=== PATIENT | female | born 1950 | race Native Hawaiian/Other Pacific Islander ===

== ENCOUNTER 2016-12-04 19:16 | Inpatient (IN) | payer OTHER ==
[~2016-12-04] VITALS: Ht 172.7 cm; Wt 57.6 kg
[~2016-12-04 19:16] MED LIST: BACLOFEN10 MG PO; BENADRYL25 M1 PO; CARV3.12 PO; CENTRUM SILVER ULTRA PO; CIPR500T PO; FLUDROCORT0.1 MG PO; LORA0.5T17 PO; METHYLPREDNISOLO1 GM IV; METO25TA4 OR; METO25TA4 PO; OMEPRAZOLE40 MG OR; PANT40TA PO; POLY3350 PO; QUETIAPINE50 MG PO; VIT C/ACEROL500 MG PO; VITAMIN D1000 UNI1 PO; ZOCOR80 MG PO
[2016-12-04 23:12] VITALS: BP 117/30; TEMP 97; Ht 172.7 cm; Wt 57.6 kg
[2016-12-05 05:19] LABS: PLATELET COUNT 339 K/uL (152-353)
[2016-12-05 05:50] LABS: POTASSIUM 4.2 mmol/L (3.6-5.2); SODIUM 138 mmol/L (136-145)
[2016-12-05 08:00] VITALS: BP 114/47; TEMP 97.6
[2016-12-05 20:11] VITALS: BP 118/41
[2016-12-06 08:00] VITALS: BP 97/53; TEMP 98.6
[2016-12-06 20:07] VITALS: BP 113/53
[2016-12-07 08:00] VITALS: BP 114/45
[2016-12-07 20:00] VITALS: BP 107/39; TEMP 96.9
[2016-12-08 07:49] VITALS: BP 126/53; TEMP 95.2
[2016-12-08 20:00] VITALS: BP 121/53
[2016-12-09 08:00] VITALS: BP 115/46; TEMP 98
[2016-12-09 20:00] VITALS: BP 123/47
[2016-12-10 08:00] VITALS: BP 121/28; TEMP 97.6
[2016-12-10 20:00] VITALS: BP 114/46
[2016-12-11 08:00] VITALS: BP 116/42; TEMP 97.3
[2016-12-11 20:00] VITALS: BP 119/46; TEMP 96.7
[2016-12-12 05:07] LABS: PLATELET COUNT 240 K/uL (152-353)
[2016-12-12 05:28] LABS: POTASSIUM 3.8 mmol/L (3.6-5.2); SODIUM 139 mmol/L (136-145)
[2016-12-12 08:00] VITALS: BP 119/55
[2016-12-12 20:29] VITALS: BP 126/46; TEMP 97.8
[2016-12-13 08:00] VITALS: BP 143/37
[2016-12-13 20:00] VITALS: BP 138/54; TEMP 97
[2016-12-14 08:00] VITALS: BP 122/59; TEMP 95
[2016-12-14 20:00] VITALS: BP 140/72
[2016-12-15 08:00] VITALS: BP 120/42; TEMP 97.8
[2016-12-15 20:00] VITALS: BP 133/54
[2016-12-16 08:00] VITALS: BP 120/44
[2016-12-16 20:14] VITALS: BP 145/61; TEMP 95.4
[2016-12-17 08:19] VITALS: BP 145/61
[2016-12-17 21:05] VITALS: BP 136/53; TEMP 96.8
[2016-12-18 08:00] VITALS: BP 124/46; TEMP 97.8
== END 2016-12-18 11:30 | disposition home health service (06) | DRG 556 ==
LOC: MED/SURG 19:16
PROVIDERS: ADMIT Internal Medicine
DX: M62.81 Muscle weakness (generalized) (principal); D64.89 Other specified anemias; G35 Multiple sclerosis
CPT/HCPCS: 36415; 80053; 85027; 94760

== ENCOUNTER 2016-12-23 10:45 | Outpatient (CLI) | payer OTHER ==
[2016-12-23 11:11] LABS: POTASSIUM 4.3 mmol/L (3.6-5.2); SODIUM 143 mmol/L (136-145)
[2016-12-23 11:13] LABS: PLATELET COUNT 122 K/uL (152-353)
== END 2016-12-23 23:42 | disposition home or self-care (01) ==
LOC: LAB 10:45
PROVIDERS: Internal Medicine
DX: G35 Multiple sclerosis (principal); I50.9 Heart failure, unspecified; M62.58 Muscle wasting and atrophy, not elsewhere classified, other site
CPT/HCPCS: 80053; 85027

== ENCOUNTER 2017-01-06 09:34 | Outpatient (CLI) | payer OTHER ==
[2017-01-06 10:16] LABS: PLATELET COUNT 86 K/uL (152-353)
[2017-01-06 11:18] LABS: POTASSIUM 6.1 mmol/L (3.6-5.2)
== END 2017-01-06 19:07 | disposition home or self-care (01) ==
LOC: LAB 09:34
PROVIDERS: Internal Medicine
DX: R53.81 Other malaise (principal); R53.82 Chronic fatigue, unspecified; Z79.899 Other long term (current) drug therapy; Z51.81 Encounter for therapeutic drug level monitoring
CPT/HCPCS: 80053; 85027

== ENCOUNTER 2017-01-14 08:29 | Outpatient (CLI) | payer OTHER ==
[2017-01-14 08:51] LABS: PLATELET COUNT 101 K/uL (152-353)
[2017-01-14 08:55] LABS: POTASSIUM 6.5 mmol/L (3.6-5.2)
== END 2017-01-14 19:12 | disposition home or self-care (01) ==
LOC: LAB 08:29
PROVIDERS: Internal Medicine
DX: G35 Multiple sclerosis (principal); I50.9 Heart failure, unspecified; M62.58 Muscle wasting and atrophy, not elsewhere classified, other site
CPT/HCPCS: 80053; 85027

== ENCOUNTER 2017-01-21 10:56 | Outpatient (CLI) | payer OTHER ==
[2017-01-21 11:05] LABS: PLATELET COUNT 89 K/uL (152-353)
[2017-01-21 11:24] LABS: POTASSIUM 4.6 mmol/L (3.6-5.2); SODIUM 141 mmol/L (136-145)
== END 2017-01-21 19:22 | disposition home or self-care (01) ==
LOC: LAB 10:56
PROVIDERS: Nurse Practitioner
DX: Z01.818 Encounter for other preprocedural examination (principal); D64.9 Anemia, unspecified
CPT/HCPCS: 80053; 82607; 82728; 83540; 83550; 85027

== ENCOUNTER 2017-03-09 10:09 | Inpatient (IN) | payer OTHER ==
[~2017-03-09] VITALS: Ht 172.7 cm; Wt 60.8 kg
[2017-03-09 10:42] VITALS: BP 127/50; TEMP 97.8; Ht 172.7 cm; Wt 60.8 kg
[2017-03-09 12:09] VITALS: BP 121/46; TEMP 97.1
[2017-03-09 20:00] VITALS: BP 120/45
[2017-03-10 08:00] VITALS: BP 108/61; TEMP 97.4
[2017-03-10 20:00] VITALS: BP 124/62; TEMP 97.3
[2017-03-11 08:00] VITALS: BP 122/56; TEMP 97.2
[2017-03-11 20:00] VITALS: BP 117/61; TEMP 97.2
[2017-03-12 20:14] VITALS: BP 106/46
[2017-03-13 20:00] VITALS: BP 100/32
[2017-03-14 07:59] VITALS: BP 113/48; TEMP 97.5
[2017-03-14 20:00] VITALS: BP 113/46
[2017-03-15 08:00] VITALS: BP 102/48; TEMP 98
[2017-03-15 20:00] VITALS: BP 109/39
[2017-03-16 04:45] LABS: PLATELET COUNT 278 K/uL (152-353)
[2017-03-16 04:58] LABS: POTASSIUM 4.5 mmol/L (3.6-5.2)
[2017-03-16 20:26] VITALS: BP 122/41; TEMP 97.8
[2017-03-17 07:49] VITALS: BP 101/53; TEMP 98
== END 2017-03-17 14:35 | disposition home or self-care (01) | DRG 556 ==
LOC: MED/SURG 10:09
PROVIDERS: ADMIT Emergency Medicine
DX: M62.81 Muscle weakness (generalized) (principal); G35 Multiple sclerosis
CPT/HCPCS: 36415; 80053; 85027; 94760

== ENCOUNTER 2017-03-21 23:10 | Inpatient (IN) | payer OTHER ==
[~2017-03-21] VITALS: Ht 172.7 cm; Wt 59.2 kg
[2017-03-21 23:28] VITALS: BP 109/50; TEMP 98
[2017-03-22 00:55] LABS: PLATELET COUNT 206 K/uL (152-353)
[2017-03-22 01:12] LABS: POTASSIUM 4.1 mmol/L (3.6-5.2); SODIUM 132 mmol/L (136-145)
[2017-03-22] MEDS ORDERED: IRON PO (02:54)
[2017-03-22 03:34] VITALS: BP 93/40; TEMP 97.7; Ht 172.7 cm; Wt 59.2 kg
[2017-03-22 04:00] VITALS: BP 104/54; TEMP 97.9
[2017-03-22 07:57] VITALS: BP 113/39; TEMP 97.5
[2017-03-22 12:00] VITALS: BP 98/36; TEMP 97.3
[2017-03-22 16:00] VITALS: BP 82/32; TEMP 97.4
[2017-03-22 20:09] VITALS: BP 102/28
[2017-03-23 00:13] VITALS: BP 105/34
[2017-03-23 04:00] VITALS: BP 112/33
[2017-03-23 05:37] LABS: PLATELET COUNT 169 K/uL (152-353)
[2017-03-23 05:53] LABS: POTASSIUM 3.4 mmol/L (3.6-5.2); SODIUM 143 mmol/L (136-145)
[2017-03-23 08:21] VITALS: BP 95/41; TEMP 97.6
[2017-03-23 11:55] VITALS: BP 93/32; TEMP 97.8
[2017-03-23 16:20] VITALS: BP 95/33; TEMP 97.6
[2017-03-23 20:29] VITALS: BP 112/47
[2017-03-24] VITALS: BP 100/50
[2017-03-24 04:00] VITALS: BP 116/54; TEMP 97.4
[2017-03-24 04:42] LABS: PLATELET COUNT 171 K/uL (152-353)
[2017-03-24 05:01] LABS: POTASSIUM 3.7 mmol/L (3.6-5.2); SODIUM 143 mmol/L (136-145)
[2017-03-24 08:00] VITALS: BP 110/53; TEMP 97.8
[2017-03-24 12:00] VITALS: BP 107/34; TEMP 98
[2017-03-24 16:00] VITALS: BP 128/47; TEMP 96.2
[2017-03-24 20:00] VITALS: BP 134/61
[2017-03-25] VITALS: BP 120/50
[2017-03-25 04:00] VITALS: BP 106/41
[2017-03-25 04:53] LABS: PLATELET COUNT 171 K/uL (152-353)
[2017-03-25 05:24] LABS: POTASSIUM 3.5 mmol/L (3.6-5.2); SODIUM 143 mmol/L (136-145)
[2017-03-25 08:00] VITALS: BP 120/43; TEMP 97.9
[2017-03-25 12:00] VITALS: BP 112/47; TEMP 98
== END 2017-03-25 18:12 | disposition home health service (06) | DRG 373 ==
LOC: ED 23:10 → MED/SURG 03-22 02:17
PROVIDERS: Internal Medicine; ADMIT Specialist
DX: A04.7 Enterocolitis due to Clostridium difficile (principal); R19.7 Diarrhea, unspecified; R53.1 Weakness; E86.9 Volume depletion, unspecified; G35 Multiple sclerosis
CPT/HCPCS: 36415; 80053; 81000; 82272; 83735; 84100; 85027; 85651; 87045; 87205; 87328; 87329; 87493; 87798; 87899; 96365; 96366; 96372; 99284; J1644; J1720; J3411; J3475; J3490

== ENCOUNTER 2017-04-06 10:50 | Outpatient (CLI) | payer OTHER ==
[~2017-04-06 10:50] MED LIST changes: +IRON PO
[2017-04-06 10:59] LABS: POTASSIUM 5.1 mmol/L (3.6-5.2); SODIUM 143 mmol/L (136-145)
[2017-04-06 11:03] LABS: PLATELET COUNT 118 K/uL (152-353)
== END 2017-04-06 12:00 | disposition home or self-care (01) ==
LOC: LAB 10:50
PROVIDERS: Internal Medicine
DX: G35 Multiple sclerosis (principal); I50.9 Heart failure, unspecified; M62.81 Muscle weakness (generalized); R26.81 Unsteadiness on feet; Z86.19 Personal history of other infectious and parasitic diseases
CPT/HCPCS: 80053; 85027

== ENCOUNTER 2017-04-13 10:09 | Outpatient (CLI) | payer OTHER ==
[2017-04-13 10:33] LABS: PLATELET COUNT 97 K/uL (152-353); POTASSIUM 5.1 mmol/L (3.6-5.2); SODIUM 140 mmol/L (136-145)
== END 2017-04-13 19:45 | disposition home or self-care (01) ==
LOC: LAB 10:09
PROVIDERS: Internal Medicine
DX: G35 Multiple sclerosis (principal); Z51.81 Encounter for therapeutic drug level monitoring; A04.8 Other specified bacterial intestinal infections
CPT/HCPCS: 80053; 85027; 85610; 87493

== ENCOUNTER 2017-04-19 11:10 | Outpatient (CLI) | payer OTHER | END 2017-04-19 12:20 | disposition home or self-care (01) | LOC: RAD 11:10 | DX: M81.0 Age-related osteoporosis without current pathological fracture (principal) ==

== ENCOUNTER 2017-04-21 13:12 | Outpatient (CLI) | payer OTHER | END 2017-04-21 19:23 | disposition home or self-care (01) | LOC: LAB 13:12 | DX: G35 Multiple sclerosis (principal); I50.9 Heart failure, unspecified; M62.81 Muscle weakness (generalized); R26.81 Unsteadiness on feet; Z86.19 Personal history of other infectious and parasitic diseases; A04.7 Enterocolitis due to Clostridium difficile; R74.8 Abnormal levels of other serum enzymes | CPT/HCPCS: 82103; 82390; 82728; 82977; 83516; 84443; 86039; 86704; 86706; 86803; 87522 ==

== ENCOUNTER 2017-05-04 10:24 | Outpatient (CLI) | payer OTHER ==
[2017-05-04 11:32] LABS: PLATELET COUNT 46 K/uL (152-353)
== END 2017-05-04 19:10 | disposition home or self-care (01) ==
LOC: LAB 10:24
PROVIDERS: Internal Medicine
DX: G35 Multiple sclerosis (principal); I50.9 Heart failure, unspecified; M62.81 Muscle weakness (generalized); R26.81 Unsteadiness on feet; Z86.19 Personal history of other infectious and parasitic diseases; A04.7 Enterocolitis due to Clostridium difficile
CPT/HCPCS: 36415; 80053; 85027

== ENCOUNTER 2017-05-12 09:47 | Outpatient (CLI) | payer OTHER ==
[2017-05-12 10:08] LABS: PLATELET COUNT 47 K/uL (152-353)
[2017-05-12 10:19] LABS: POTASSIUM 5.1 mmol/L (3.6-5.2)
== END 2017-05-12 19:05 | disposition home or self-care (01) ==
LOC: LAB 09:47
PROVIDERS: Internal Medicine
DX: G35 Multiple sclerosis (principal); I50.9 Heart failure, unspecified; M62.81 Muscle weakness (generalized); R26.81 Unsteadiness on feet; Z86.19 Personal history of other infectious and parasitic diseases; K74.3 Primary biliary cirrhosis; D64.89 Other specified anemias; R53.83 Other fatigue
CPT/HCPCS: 80053; 82607; 82746; 82977; 85027

== ENCOUNTER 2017-05-18 09:11 | Outpatient (CLI) | payer OTHER | END 2017-05-18 19:06 | disposition home or self-care (01) | LOC: CT 09:11 | DX: R63.4 Abnormal weight loss (principal); R62.7 Adult failure to thrive; R74.8 Abnormal levels of other serum enzymes | CPT/HCPCS: Q9963 ==

== ENCOUNTER 2017-05-19 11:29 | Outpatient (CLI) | payer OTHER ==
[2017-05-19 11:45] LABS: PLATELET COUNT 53 K/uL (152-353)
[2017-05-19 12:54] LABS: POTASSIUM 5.8 mmol/L (3.6-5.2); SODIUM 141 mmol/L (136-145)
== END 2017-05-19 12:30 | disposition home or self-care (01) ==
LOC: LAB 11:29
PROVIDERS: Internal Medicine
DX: G35 Multiple sclerosis (principal); I50.9 Heart failure, unspecified; M62.81 Muscle weakness (generalized); R26.81 Unsteadiness on feet; Z86.19 Personal history of other infectious and parasitic diseases; A04.7 Enterocolitis due to Clostridium difficile
CPT/HCPCS: 80053; 85027

== ENCOUNTER 2017-05-30 08:21 | Emergency (ER) | payer OTHER ==
[~2017-05-30] VITALS: Ht 172.7 cm; Wt 59.0 kg
[2017-05-30 08:33] VITALS: TEMP 98.2
[2017-05-30] MEDS ORDERED: ALEN70TA19 PO (08:36)
[2017-05-30] MEDS ORDERED: VANCOMYCIN125 MG PO (08:38)
[2017-05-30] MEDS ORDERED: VITAMIN D31000 UNIT PO (08:38)
[2017-05-30 09:24] LABS: PLATELET COUNT 102 K/uL (152-353)
[2017-05-30 09:45] LABS: POTASSIUM 4.8 mmol/L (3.6-5.2)
[2017-05-30 12:38] VITALS: BP 114/68
== END 2017-05-30 12:56 | disposition home or self-care (01) ==
LOC: ED 08:21
DX: R19.7 Diarrhea, unspecified (principal); E86.0 Dehydration
CPT/HCPCS: 36415; 80053; 85027; 96360; 96374; 99283; J1885

== ENCOUNTER 2017-06-10 21:19 | Outpatient (CLI) | payer OTHER ==
[~2017-06-10 21:19] MED LIST changes: +ALEN70TA19 PO; +VANCOMYCIN125 MG PO; +VITAMIN D31000 UNIT PO
== END 2017-06-10 22:20 | disposition home or self-care (01) ==
LOC: LABW 21:19
DX: R19.7 Diarrhea, unspecified (principal)
CPT/HCPCS: 82272; 87015; 87045; 87205; 87324; 87328; 87329; 87449; 87899

== ENCOUNTER 2017-06-25 16:15 | Inpatient (IN) | payer OTHER ==
[~2017-06-25] VITALS: Ht 172.7 cm; Wt 57.7 kg
[2017-06-26 08:00] VITALS: BP 118/46; TEMP 96
[2017-06-26 20:00] VITALS: BP 114/58
[2017-06-27 08:00] VITALS: BP 105/44; TEMP 96.7
[2017-06-27 20:00] VITALS: BP 115/54
[2017-06-28 08:00] VITALS: BP 91/37; TEMP 97.4
[2017-06-28 20:27] VITALS: BP 119/46
[2017-06-29 20:00] VITALS: BP 119/51
[2017-06-30 05:44] LABS: POTASSIUM 4.5 mmol/L (3.6-5.2)
[2017-06-30 05:48] LABS: PLATELET COUNT 228 K/uL (152-353)
[2017-07-01 20:00] VITALS: BP 121/54
[2017-07-02 08:00] VITALS: BP 90/33; TEMP 97.4
[2017-07-02 20:00] VITALS: BP 123/54
[2017-07-03 08:00] VITALS: BP 95/33; TEMP 97.3
[2017-07-03 20:00] VITALS: BP 115/50
[2017-07-04 20:26] VITALS: BP 117/49
[2017-07-05 20:00] VITALS: BP 99/38
[2017-07-06 08:00] VITALS: BP 108/36; TEMP 97.6
== END 2017-07-06 18:19 | disposition home or self-care (01) | DRG 556 ==
LOC: MED/SURG 16:15
PROVIDERS: ADMIT Emergency Medicine
DX: M62.81 Muscle weakness (generalized) (principal); N39.0 Urinary tract infection, site not specified; E87.5 Hyperkalemia; D69.6 Thrombocytopenia, unspecified
CPT/HCPCS: 36415; 80053; 85027

== ENCOUNTER 2017-07-13 10:28 | Outpatient (CLI) | payer OTHER ==
[2017-07-13 10:57] LABS: PLATELET COUNT 131 K/uL (152-353)
[2017-07-13 11:05] LABS: POTASSIUM 5.1 mmol/L (3.6-5.2)
== END 2017-07-13 11:30 | disposition home or self-care (01) ==
LOC: LAB 10:28
PROVIDERS: Internal Medicine
DX: G35 Multiple sclerosis (principal); N39.0 Urinary tract infection, site not specified; I50.9 Heart failure, unspecified; M62.81 Muscle weakness (generalized)
CPT/HCPCS: 80053; 85027

== ENCOUNTER 2017-07-27 09:38 | Outpatient (CLI) | payer OTHER ==
[2017-07-27 09:54] LABS: PLATELET COUNT 68 K/uL (152-353)
== END 2017-07-27 10:40 | disposition home or self-care (01) ==
LOC: LAB 09:38
PROVIDERS: Internal Medicine
DX: G35 Multiple sclerosis (principal); I50.9 Heart failure, unspecified; N39.0 Urinary tract infection, site not specified; Z86.19 Personal history of other infectious and parasitic diseases; R26.81 Unsteadiness on feet; M62.81 Muscle weakness (generalized)
CPT/HCPCS: 80053; 81000; 85027; 87077; 87086; 87088; 87186

== ENCOUNTER 2017-08-06 12:01 | Outpatient (CLI) | payer OTHER | END 2017-08-06 18:57 | disposition home or self-care (01) | LOC: LAB 12:01 | DX: N39.0 Urinary tract infection, site not specified (principal) | CPT/HCPCS: 81000; 87088 ==

== ENCOUNTER 2017-09-17 11:43 | Outpatient (CLI) | payer OTHER ==
[2017-09-17 12:23] LABS: PLATELET COUNT 93 K/uL (152-353); POTASSIUM 5.7 mmol/L (3.6-5.2)
== END 2017-09-17 19:07 | disposition home or self-care (01) ==
LOC: LAB 11:43
PROVIDERS: Internal Medicine
DX: R74.8 Abnormal levels of other serum enzymes (principal); Z79.899 Other long term (current) drug therapy; Z51.81 Encounter for therapeutic drug level monitoring
CPT/HCPCS: 80053; 81000; 85027; 87077; 87086; 87088; 87186

== ENCOUNTER 2017-11-02 10:26 | Outpatient (CLI) | payer OTHER ==
[2017-11-02 11:09] LABS: PLATELET COUNT 86 K/uL (152-353)
[2017-11-02 11:37] LABS: POTASSIUM 4.3 mmol/L (3.6-5.2); SODIUM 143 mmol/L (136-145)
== END 2017-11-02 11:30 | disposition home or self-care (01) ==
LOC: LAB 10:26
PROVIDERS: Internal Medicine
DX: D61.818 Other pancytopenia (principal); R74.8 Abnormal levels of other serum enzymes; R53.83 Other fatigue
CPT/HCPCS: 80053; 84439; 84443; 85027

== ENCOUNTER 2017-11-11 23:14 | Emergency (ER) | payer OTHER ==
[~2017-11-11] VITALS: Ht 172.7 cm; Wt 59.0 kg
[2017-11-12 00:01] LABS: PLATELET COUNT 129 K/uL (152-353)
[2017-11-12 00:13] LABS: POTASSIUM 4.1 mmol/L (3.6-5.2)
[2017-11-12 01:16] VITALS: BP 128/64; TEMP 98.1
== END 2017-11-12 01:25 | disposition home or self-care (01) ==
LOC: ED 23:14
DX: J18.9 Pneumonia, unspecified organism (principal); D64.89 Other specified anemias; D69.3 Immune thrombocytopenic purpura
CPT/HCPCS: 80053; 81000; 85027; 87081; 87804; 87880; 93005; 96372; 99283; J0696

== ENCOUNTER 2017-11-17 10:29 | Outpatient (CLI) | payer OTHER ==
[2017-11-17 11:06] LABS: POTASSIUM 5.2 mmol/L (3.6-5.2)
== END 2017-11-17 19:21 | disposition home or self-care (01) ==
LOC: LAB 10:29
PROVIDERS: Internal Medicine
DX: D61.818 Other pancytopenia (principal); R74.8 Abnormal levels of other serum enzymes; R53.83 Other fatigue
CPT/HCPCS: 80048

== ENCOUNTER 2017-12-20 10:20 | Outpatient (CLI) | payer OTHER ==
[2017-12-20 10:33] LABS: PLATELET COUNT 182 K/uL (152-353)
[2017-12-20 10:51] LABS: POTASSIUM 3.9 mmol/L (3.6-5.2)
== END 2017-12-20 19:40 | disposition home or self-care (01) ==
LOC: LAB 10:20
PROVIDERS: Internal Medicine
DX: D61.818 Other pancytopenia (principal); R74.8 Abnormal levels of other serum enzymes; R53.83 Other fatigue
CPT/HCPCS: 80048; 85027

== ENCOUNTER 2018-01-06 09:33 | Outpatient (CLI) | payer OTHER ==
[2018-01-06 10:07] LABS: POTASSIUM 5.6 mmol/L (3.6-5.2)
== END 2018-01-06 22:16 | disposition home or self-care (01) ==
LOC: LAB 09:33
PROVIDERS: Internal Medicine
DX: D61.818 Other pancytopenia (principal); R74.8 Abnormal levels of other serum enzymes; R53.83 Other fatigue
CPT/HCPCS: 80048

== ENCOUNTER 2018-01-07 11:42 | Outpatient (CLI) | payer OTHER ==
[2018-01-07 12:23] LABS: PLATELET COUNT 25 K/uL (152-353)
== END 2018-01-07 21:07 | disposition home or self-care (01) ==
LOC: LAB 11:42
PROVIDERS: Internal Medicine
DX: G35 Multiple sclerosis (principal); J18.9 Pneumonia, unspecified organism
CPT/HCPCS: 85027

== ENCOUNTER 2018-02-01 15:12 | Inpatient (IN) | payer OTHER ==
[~2018-02-01] VITALS: Ht 172.7 cm; Wt 54.1 kg
[2018-02-01 16:47] VITALS: BP 105/53; TEMP 96.9; Ht 172.7 cm; Wt 54.1 kg
[2018-02-01 20:30] VITALS: BP 115/56; TEMP 96.9
[2018-02-02 08:07] VITALS: BP 117/47; TEMP 97.2
[2018-02-02 20:30] VITALS: BP 114/61
[2018-02-03 08:01] VITALS: BP 115/40; TEMP 98.4
[2018-02-03 20:54] VITALS: BP 106/50
[2018-02-04 05:42] LABS: PLATELET COUNT 165 K/uL (152-353)
[2018-02-04 06:45] LABS: POTASSIUM 4.3 mmol/L (3.6-5.2)
[2018-02-04 08:20] VITALS: BP 108/48
[2018-02-04 20:30] VITALS: BP 106/43; TEMP 97.2
[2018-02-05 08:17] VITALS: BP 108/55; TEMP 97
[2018-02-05 19:56] VITALS: BP 120/79; TEMP 97.3
[2018-02-06 07:10] VITALS: BP 110/48; TEMP 97
[2018-02-06 19:59] VITALS: BP 108/57; TEMP 97.3
[2018-02-07 20:30] VITALS: BP 114/55
[2018-02-08 08:30] VITALS: BP 109/52; TEMP 98.1
[2018-02-08 20:24] VITALS: BP 123/66
[2018-02-09 08:01] VITALS: BP 111/49; TEMP 98.2
[2018-02-09 19:56] VITALS: BP 99/53; TEMP 97.4
[2018-02-10 07:42] VITALS: BP 101/49; TEMP 97.5
[2018-02-10 20:30] VITALS: BP 116/70
[2018-02-11 08:00] VITALS: BP 95/45; TEMP 97
[2018-02-11 20:30] VITALS: BP 107/55
[2018-02-12 08:30] VITALS: BP 103/55; TEMP 97.8
[2018-02-12 20:48] VITALS: BP 114/42
[2018-02-13 08:34] VITALS: BP 100/64; TEMP 97.6
[2018-02-13 20:40] VITALS: BP 114/42
[2018-02-14 07:51] VITALS: BP 116/48; TEMP 98.1
[2018-02-14 20:00] VITALS: BP 112/64; TEMP 96.7
[2018-02-15 08:24] VITALS: BP 97/31; TEMP 97.3
[2018-02-15 20:00] VITALS: BP 99/51; TEMP 97
[2018-02-16 08:24] VITALS: BP 95/46; TEMP 97.8
[2018-02-16 20:00] VITALS: BP 103/40
[2018-02-17 08:30] VITALS: BP 105/66; TEMP 97.4
[2018-02-17 20:00] VITALS: BP 110/39
[2018-02-18 08:30] VITALS: BP 103/82; TEMP 96
[2018-02-18 20:00] VITALS: BP 137/68; TEMP 97.3
[2018-02-19 08:00] VITALS: BP 114/48
[2018-02-19 20:00] VITALS: BP 132/74; TEMP 96.7
[2018-02-20 08:00] VITALS: BP 125/48; TEMP 97
[2018-02-20 20:30] VITALS: BP 121/59; TEMP 97
[2018-02-21 08:30] VITALS: BP 104/46; TEMP 96
[2018-02-21 20:03] VITALS: BP 116/42
[2018-02-22 07:56] VITALS: BP 97/42; TEMP 97.8
[2018-02-22 20:29] VITALS: BP 129/43
[2018-02-23 20:00] VITALS: BP 126/67; TEMP 96.7
[2018-02-24 08:18] VITALS: BP 107/35; TEMP 97.5
[2018-02-24 20:07] VITALS: BP 133/77; TEMP 96.7
== END 2018-02-25 15:45 | disposition home health service (06) | DRG 555 ==
LOC: MED/SURG 15:12
PROVIDERS: ADMIT Internal Medicine
DX: M62.81 Muscle weakness (generalized) (principal); J96.00 Acute respiratory failure, unspecified whether with hypoxia or hypercapnia; L89.153 Pressure ulcer of sacral region, stage 3; K92.2 Gastrointestinal hemorrhage, unspecified; D61.818 Other pancytopenia; T83.511A Infection and inflammatory reaction due to indwelling urethral catheter, initial encounter; N39.0 Urinary tract infection, site not specified; D69.6 Thrombocytopenia, unspecified; G35 Multiple sclerosis; R13.19 Other dysphagia; R41.82 Altered mental status, unspecified; R00.1 Bradycardia, unspecified; R62.7 Adult failure to thrive; K21.9 Gastro-esophageal reflux disease without esophagitis; B96.20 Unspecified Escherichia coli [E. coli] as the cause of diseases classified elsewhere; L89.101 Pressure ulcer of unspecified part of back, stage 1; L89.510 Pressure ulcer of right ankle, unstageable; L89.629 Pressure ulcer of left heel, unspecified stage; L89.619 Pressure ulcer of right heel, unspecified stage
CPT/HCPCS: 80053; 81000; 82607; 82728; 83540; 85027; 87077; 87086; 87088; 87186

== ENCOUNTER 2018-03-14 12:59 | Outpatient (CLI) | payer OTHER | END 2018-03-14 20:06 | disposition home or self-care (01) | LOC: LAB 12:59 | DX: N39.0 Urinary tract infection, site not specified (principal) | CPT/HCPCS: 81000; 87077; 87086; 87088; 87186 ==

== ENCOUNTER 2018-03-21 10:13 | Outpatient (CLI) | payer OTHER ==
[2018-03-21 10:41] LABS: PLATELET COUNT 62 K/uL (152-353)
[2018-03-21 12:06] LABS: POTASSIUM 6.1 mmol/L (3.6-5.2)
== END 2018-03-21 22:49 | disposition home or self-care (01) ==
LOC: LAB 10:13
PROVIDERS: Internal Medicine
DX: I50.9 Heart failure, unspecified (principal); E87.5 Hyperkalemia; R82.99 Other abnormal findings in urine; R19.7 Diarrhea, unspecified; R53.1 Weakness; R53.83 Other fatigue
CPT/HCPCS: 80053; 81000; 82272; 84132; 85027; 87077; 87086; 87088; 87186; 87205; 87324; 87328; 87329; 87449

== ENCOUNTER 2018-03-29 15:01 | Outpatient (CLI) | payer OTHER ==
[2018-03-29 15:13] LABS: POTASSIUM 4.3 mmol/L (3.6-5.2)
== END 2018-03-29 19:39 | disposition home or self-care (01) ==
LOC: LAB 15:01
PROVIDERS: Internal Medicine
DX: G35 Multiple sclerosis (principal); I50.9 Heart failure, unspecified
CPT/HCPCS: 80048

== ENCOUNTER 2018-04-04 10:55 | Outpatient (CLI) | payer OTHER ==
[2018-04-04 11:21] LABS: POTASSIUM 3.9 mmol/L (3.6-5.2)
[2018-04-04 11:56] LABS: PLATELET COUNT 24 K/uL (152-353)
== END 2018-04-04 22:27 | disposition home or self-care (01) ==
LOC: LAB 10:55
PROVIDERS: Internal Medicine
DX: D61.818 Other pancytopenia (principal); I50.9 Heart failure, unspecified; G35 Multiple sclerosis; E87.4 Mixed disorder of acid-base balance; N39.0 Urinary tract infection, site not specified; R19.7 Diarrhea, unspecified; R53.83 Other fatigue
CPT/HCPCS: 80053; 81000; 85027; 85610; 85730

== ENCOUNTER 2018-05-05 13:03 | Outpatient (CLI) | payer OTHER ==
[2018-05-05 13:53] LABS: PLATELET COUNT 111 K/uL (152-353)
[2018-05-05 14:31] LABS: POTASSIUM 3.5 mmol/L (3.6-5.2)
== END 2018-05-05 20:32 | disposition home or self-care (01) ==
LOC: LAB 13:03
PROVIDERS: Internal Medicine
DX: G35 Multiple sclerosis (principal); I50.9 Heart failure, unspecified; R13.12 Dysphagia, oropharyngeal phase; N39.498 Other specified urinary incontinence; R53.83 Other fatigue
CPT/HCPCS: 80053; 81000; 85027

== ENCOUNTER 2018-05-10 07:48 | Day surgery (SDC) | payer OTHER ==
[~2018-05-10] VITALS: Ht 30.5 cm; Wt 0.5 kg
[2018-05-10 08:49] LABS: PLATELET COUNT 96 K/uL (152-353)
[2018-05-10 09:03] LABS: POTASSIUM 3.5 mmol/L (3.6-5.2)
== END 2018-05-10 12:20 | disposition home or self-care (01) ==
LOC: OR 07:48
PROVIDERS: Student in an Organized Health Care Education/Training Program
PROC: 05HM33Z Insertion of Infusion Device into Right Internal Jugular Vein, Percutaneous Approach (ICD-10-PCS; principal; 2018-05-10)
PROC: B543ZZA Ultrasonography of Right Jugular Veins, Guidance (ICD-10-PCS; 2018-05-10)
DX: I87.8 Other specified disorders of veins (principal); R09.89 Other specified symptoms and signs involving the circulatory and respiratory systems
CPT/HCPCS: 80053; 85027; 93005; 94640; 94664; J0180; C1788; J0690; J1100; J1644; J2001; J2250; J2405; J2704; J3010; J3490

== ENCOUNTER 2018-05-17 15:43 | Outpatient (CLI) | payer OTHER | END 2018-05-17 22:22 | disposition home or self-care (01) | LOC: RAD 15:43 | DX: R06.02 Shortness of breath (principal) ==

== ENCOUNTER 2018-05-18 12:42 | Outpatient (CLI) | payer OTHER ==
[2018-05-18 13:29] LABS: POTASSIUM 3.5 mmol/L (3.6-5.2)
[2018-05-18 13:44] LABS: PLATELET COUNT 122 K/uL (152-353)
== END 2018-05-18 20:04 | disposition home or self-care (01) ==
LOC: LAB 12:42
PROVIDERS: Internal Medicine
DX: G35 Multiple sclerosis (principal); I50.9 Heart failure, unspecified; R13.12 Dysphagia, oropharyngeal phase; R53.83 Other fatigue
CPT/HCPCS: 80053; 81000; 82308; 83880; 85027

== ENCOUNTER 2018-06-03 11:43 | Outpatient (CLI) | payer OTHER ==
[2018-06-03 12:43] LABS: PLATELET COUNT 93 K/uL (152-353)
[2018-06-03 12:55] LABS: POTASSIUM 3.5 mmol/L (3.6-5.2)
== END 2018-06-03 19:14 | disposition home or self-care (01) ==
LOC: LAB 11:43
PROVIDERS: Internal Medicine
DX: G35 Multiple sclerosis (principal); I50.9 Heart failure, unspecified; R13.12 Dysphagia, oropharyngeal phase; R32 Unspecified urinary incontinence
CPT/HCPCS: 80053; 81000; 85027; 87086; 87088

== ENCOUNTER 2018-06-17 10:48 | Outpatient (CLI) | payer OTHER ==
[2018-06-17 10:58] LABS: PLATELET COUNT 93 K/uL (152-353)
== END 2018-06-17 22:32 | disposition home or self-care (01) ==
LOC: LAB 10:48
PROVIDERS: Internal Medicine
DX: G35 Multiple sclerosis (principal); L89.623 Pressure ulcer of left heel, stage 3; N39.0 Urinary tract infection, site not specified; I50.9 Heart failure, unspecified
CPT/HCPCS: 85027

== ENCOUNTER 2018-07-13 11:19 | Outpatient (CLI) | payer OTHER ==
[2018-07-13 12:25] LABS: PLATELET COUNT 165 K/uL (152-353)
[2018-07-13 12:29] LABS: POTASSIUM 3.9 mmol/L (3.6-5.2)
== END 2018-07-13 23:59 | disposition home or self-care (01) ==
LOC: LAB 11:19
PROVIDERS: Internal Medicine
DX: A04.72 Enterocolitis due to Clostridium difficile, not specified as recurrent (principal); G35 Multiple sclerosis; D64.9 Anemia, unspecified; I50.9 Heart failure, unspecified; N39.0 Urinary tract infection, site not specified; R53.83 Other fatigue
CPT/HCPCS: 80053; 81000; 85027; 87077; 87086; 87088; 87186

== ENCOUNTER 2018-07-28 12:19 | Outpatient (CLI) | payer OTHER ==
[2018-07-28 12:51] LABS: PLATELET COUNT 173 K/uL (152-353)
[2018-07-28 13:14] LABS: POTASSIUM 3.4 mmol/L (3.6-5.2)
== END 2018-07-28 19:19 | disposition home or self-care (01) ==
LOC: LAB 12:19
PROVIDERS: Internal Medicine
DX: N39.0 Urinary tract infection, site not specified (principal); G35 Multiple sclerosis; L89.623 Pressure ulcer of left heel, stage 3; A04.72 Enterocolitis due to Clostridium difficile, not specified as recurrent; I50.9 Heart failure, unspecified; R19.7 Diarrhea, unspecified; R53.1 Weakness; R53.83 Other fatigue; D61.818 Other pancytopenia; Z87.440 Personal history of urinary (tract) infections
CPT/HCPCS: 80053; 81000; 85027

== ENCOUNTER 2018-08-10 09:05 | Outpatient (CLI) | payer OTHER ==
[2018-08-10 09:16] LABS: PLATELET COUNT 146 K/uL (152-353)
[2018-08-10 09:29] LABS: POTASSIUM 3.4 mmol/L (3.6-5.2)
== END 2018-08-10 21:31 | disposition home or self-care (01) ==
LOC: LAB 09:05
PROVIDERS: Internal Medicine
DX: I50.9 Heart failure, unspecified (principal); G35 Multiple sclerosis; Z87.440 Personal history of urinary (tract) infections
CPT/HCPCS: 80053; 81000; 85027

== ENCOUNTER 2018-08-11 12:02 | Outpatient (CLI) | payer OTHER | END 2018-08-11 19:47 | disposition home or self-care (01) | LOC: LAB 12:02 | DX: R19.7 Diarrhea, unspecified (principal) | CPT/HCPCS: 87015; 87045; 87324; 87328; 87329; 87449; 87899 ==

== ENCOUNTER 2018-08-23 11:46 | Outpatient (CLI) | payer OTHER ==
[2018-08-23 12:31] LABS: POTASSIUM 4.7 mmol/L (3.6-5.2)
[2018-08-23 12:51] LABS: PLATELET COUNT 157 K/uL (152-353)
== END 2018-08-23 23:27 | disposition home or self-care (01) ==
LOC: LAB 11:46
PROVIDERS: Internal Medicine
DX: G35 Multiple sclerosis (principal); D64.9 Anemia, unspecified; I50.9 Heart failure, unspecified; R32 Unspecified urinary incontinence
CPT/HCPCS: 80053; 81000; 85027; 87086; 87088

== ENCOUNTER 2018-09-06 10:34 | Outpatient (CLI) | payer OTHER ==
[2018-09-06 11:03] LABS: PLATELET COUNT 74 K/uL (152-353)
== END 2018-09-06 22:41 | disposition home or self-care (01) ==
LOC: LAB 10:34
PROVIDERS: Internal Medicine
DX: G35 Multiple sclerosis (principal); D64.9 Anemia, unspecified; I50.9 Heart failure, unspecified; R32 Unspecified urinary incontinence; R53.1 Weakness; R53.83 Other fatigue; Z87.440 Personal history of urinary (tract) infections
CPT/HCPCS: 80053; 81000; 85027; 87077; 87086; 87088; 87186

== ENCOUNTER 2018-09-21 10:56 | Outpatient (CLI) | payer OTHER ==
[2018-09-21 11:08] LABS: PLATELET COUNT 86 K/uL (152-353)
[2018-09-21 11:39] LABS: POTASSIUM 3.9 mmol/L (3.6-5.2)
== END 2018-09-21 20:58 | disposition home or self-care (01) ==
LOC: LAB 10:56
PROVIDERS: Internal Medicine
DX: N39.0 Urinary tract infection, site not specified (principal); I50.9 Heart failure, unspecified; E87.5 Hyperkalemia; R32 Unspecified urinary incontinence; G35 Multiple sclerosis; R53.1 Weakness; R53.83 Other fatigue; Z87.440 Personal history of urinary (tract) infections
CPT/HCPCS: 80053; 81000; 85027

== ENCOUNTER 2018-10-05 10:36 | Outpatient (CLI) | payer OTHER ==
[2018-10-05 10:53] LABS: PLATELET COUNT 40 K/uL (152-353)
[2018-10-05 11:11] LABS: POTASSIUM 4.2 mmol/L (3.6-5.2)
== END 2018-10-05 20:31 | disposition home or self-care (01) ==
LOC: LAB 10:36
PROVIDERS: Internal Medicine
DX: I50.9 Heart failure, unspecified (principal); D64.9 Anemia, unspecified; G35 Multiple sclerosis; Z87.440 Personal history of urinary (tract) infections; R32 Unspecified urinary incontinence
CPT/HCPCS: 80053; 81000; 85027; 87077; 87086; 87088; 87186

== ENCOUNTER 2018-11-22 22:47 | Inpatient (IN) | payer OTHER ==
[~2018-11-22] VITALS: Ht 172.7 cm; Wt 59.9 kg
[2018-11-22 22:55] VITALS: BP 121/50; TEMP 98
[2018-11-23] VITALS (32 sets, daily range): BP systolic 10–114; BP diastolic 26–94; TEMP 95–97; Ht 172.7 cm; Wt 59.9 kg
[2018-11-23 00:02] LABS: PLATELET COUNT 126 K/uL (152-353)
[2018-11-23 00:17] LABS: POTASSIUM 3.2 mmol/L (3.6-5.2); SODIUM 149 mmol/L (136-145)
[2018-11-23] MEDS ORDERED: KP FOLIC ACID1 MG PO (06:15)
[2018-11-23] MEDS ORDERED: VITAMIN C1000 MG PO (06:18)
[2018-11-23] MEDS ORDERED: PROBIOTIC1 TAB PO (06:19)
[2018-11-23] MEDS ORDERED: ACETAMINOPHEN PO (06:24)
[2018-11-23] MEDS ORDERED: LORA0.5T17 PO (06:25)
[2018-11-23] MEDS ORDERED: FURO20TA67 PO (06:27)
[2018-11-23] MEDS ORDERED: NITROFURANTOIN100 MG PO (06:28)
[2018-11-23] MEDS ORDERED: ACID REDUCER20 MG PO (06:29)
[2018-11-23] MEDS ORDERED: BIOTIN5000 MCG PO (06:30)
[2018-11-23] MEDS ORDERED: FLUD0.1T PO (06:31)
[2018-11-23] MEDS ORDERED: BINOSTO70 MG PO (06:33)
[2018-11-23] MEDS ORDERED: VIRT PO (06:34)
[2018-11-23 08:53] LABS: POTASSIUM 3.2 mmol/L (3.6-5.2); SODIUM 150 mmol/L (136-145)
[2018-11-24] VITALS (24 sets, daily range): BP systolic 71–118; BP diastolic 32–89; TEMP 96–9695
[2018-11-24 06:34] LABS: POTASSIUM 3.4 mmol/L (3.6-5.2)
[2018-11-24] MEDS ORDERED: LISI5TAB10 PO (08:48)
[2018-11-24] MEDS ORDERED: K-TABS10 MEQ PO (08:52)
[2018-11-24 15:45] LABS: PLATELET COUNT 101 K/uL (152-353)
[2018-11-24 15:52] LABS: POTASSIUM 3.4 mmol/L (3.6-5.2)
[2018-11-25] VITALS (23 sets, daily range): BP systolic 86–120; BP diastolic 28–65; TEMP 97.4–98.9
[2018-11-25 06:16] LABS: POTASSIUM 2.9 mmol/L (3.6-5.2)
[2018-11-25 15:29] LABS: POTASSIUM 3.6 mmol/L (3.6-5.2)
[2018-11-26] VITALS (23 sets, daily range): BP systolic 90–120; BP diastolic 29–83; TEMP 98–99.3
[2018-11-26 05:48] LABS: PLATELET COUNT 83 K/uL (152-353)
[2018-11-27] VITALS (23 sets, daily range): BP systolic 85–124; BP diastolic 30–84; TEMP 97.7–98.5
[2018-11-27 06:33] LABS: PLATELET COUNT 82 K/uL (152-353)
[2018-11-27 06:42] LABS: POTASSIUM 3.3 mmol/L (3.6-5.2)
[2018-11-28] VITALS (13 sets, daily range): BP systolic 96–121; BP diastolic 47–65; TEMP 97.8–101.1
[2018-11-28 08:00] LABS: PLATELET COUNT 81 K/uL (152-353)
[2018-11-28 08:49] LABS: POTASSIUM 3.6 mmol/L (3.6-5.2)
[2018-11-29 00:10] VITALS: BP 94/45; TEMP 98.3
[2018-11-29 04:00] VITALS: BP 106/62; TEMP 97.4
[2018-11-29 08:30] VITALS: BP 103/42; TEMP 98.1
[2018-11-29 12:11] VITALS: BP 111/45; TEMP 97.9
[2018-11-29 16:07] VITALS: BP 94/52; TEMP 99.8
[2018-11-29 20:08] VITALS: BP 106/55; TEMP 97.5
[2018-11-30] VITALS (7 sets, daily range): BP systolic 79–113; BP diastolic 35–57; TEMP 98.4–100.9
[2018-11-30 06:15] LABS: POTASSIUM 3.9 mmol/L (3.6-5.2)
[2018-11-30 06:19] LABS: PLATELET COUNT 94 K/uL (152-353)
[2018-12-01 04:00] VITALS: BP 89/33; TEMP 100.5
[2018-12-01 06:12] LABS: PLATELET COUNT 55 K/uL (152-353)
[2018-12-01 08:03] VITALS: BP 69/70; TEMP 99
[2018-12-01 12:07] VITALS: BP 97/57; TEMP 97.8
[2018-12-01 16:00] VITALS: BP 76/42; TEMP 97.1
[2018-12-01 20:00] VITALS: BP 86/47; TEMP 96.8
[2018-12-02] VITALS: BP 86/36; TEMP 97.2
[2018-12-02 04:00] VITALS: BP 100/41; TEMP 96.9
[2018-12-02 06:25] LABS: PLATELET COUNT 38 K/uL (152-353); POTASSIUM 5.7 mmol/L (3.6-5.2)
[2018-12-02 08:01] VITALS: BP 111/64; TEMP 97.4
[2018-12-02 12:06] VITALS: BP 102/62; TEMP 97.9
[2018-12-02 16:00] VITALS: BP 109/62; TEMP 97.6
[2018-12-02 20:17] VITALS: BP 108/62; TEMP 97.3
[2018-12-03] VITALS: BP 106/63; TEMP 97.5
[2018-12-03 04:00] VITALS: BP 97/59; TEMP 97.5
[2018-12-03 05:35] LABS: PLATELET COUNT 68 K/uL (152-353)
[2018-12-03 05:50] LABS: POTASSIUM 5.7 mmol/L (3.6-5.2)
[2018-12-03 08:10] VITALS: BP 102/63; TEMP 97.7
[2018-12-03 12:08] VITALS: BP 108/59; TEMP 97.1
[2018-12-03 16:16] VITALS: BP 106/64; TEMP 93
[2018-12-03 20:11] VITALS: BP 106/68
[2018-12-04] VITALS (7 sets, daily range): BP systolic 97–145; BP diastolic 18–92; TEMP 97.3–97.8
[2018-12-04 08:44] LABS: PLATELET COUNT 99 K/uL (152-353)
[2018-12-04 09:20] LABS: POTASSIUM 5.2 mmol/L (3.6-5.2)
[2018-12-05 04:00] VITALS: BP 91/52
[2018-12-05 06:23] LABS: PLATELET COUNT 118 K/uL (152-353)
[2018-12-05 06:33] LABS: POTASSIUM 4.2 mmol/L (3.6-5.2)
[2018-12-05 08:00] VITALS: BP 135/73; TEMP 97.6
[2018-12-05 12:00] VITALS: BP 113/67; TEMP 97.4
[2018-12-05 16:00] VITALS: BP 109/68; TEMP 97.4
[2018-12-05 20:00] VITALS: BP 103/58
[2018-12-06] VITALS: BP 121/67
[2018-12-06 04:00] VITALS: BP 126/70; TEMP 96.9
[2018-12-06 08:05] VITALS: BP 109/62; TEMP 97.9
[2018-12-06 12:01] VITALS: BP 110/65
[2018-12-06 16:05] VITALS: BP 106/68; TEMP 97.6
[2018-12-06 20:00] VITALS: BP 118/70
[2018-12-07] VITALS: BP 123/82; TEMP 96.9
[2018-12-07 04:00] VITALS: BP 116/68
[2018-12-07 08:06] VITALS: BP 108/77; TEMP 97.5
[2018-12-07 12:02] VITALS: BP 106/64; TEMP 97.8
[2018-12-07 16:26] VITALS: BP 114/71
[2018-12-07 20:00] VITALS: BP 118/81
[2018-12-08 00:16] VITALS: BP 113/65
[2018-12-08 04:00] VITALS: BP 120/80
[2018-12-08 08:00] VITALS: BP 109/68; TEMP 97.5
[2018-12-08 12:00] VITALS: BP 119/71
[2018-12-08 16:03] VITALS: BP 127/70; TEMP 97.4
[2018-12-08 20:06] VITALS: BP 111/69
[2018-12-09] VITALS: BP 105/67
[2018-12-09 04:15] VITALS: BP 104/68
[2018-12-09 08:00] VITALS: BP 109/55; TEMP 97.5
[2018-12-09 12:00] VITALS: BP 129/65
[2018-12-09 16:00] VITALS: BP 116/61; TEMP 96.4
[2018-12-09 20:00] VITALS: BP 108/82
[2018-12-10] VITALS (7 sets, daily range): BP systolic 78–116; BP diastolic 36–70; TEMP 96.3–96.8
[2018-12-10 07:10] LABS: PLATELET COUNT 115 K/uL (152-353)
[2018-12-10 07:13] LABS: POTASSIUM 3.7 mmol/L (3.6-5.2)
[2018-12-10 18:19] LABS: PLATELET COUNT 93 K/uL (152-353)
[2018-12-10 18:25] LABS: POTASSIUM 3.8 mmol/L (3.6-5.2)
== END 2018-12-10 22:20 | disposition short-term general hospital (02) | DRG 291 ==
LOC: ED 22:47 → ICU 11-23 01:40 → MED/SURG 11-28 11:34
PROVIDERS: ADMIT Internal Medicine
PROC: 30243N1 Transfusion of Nonautologous Red Blood Cells into Central Vein, Percutaneous Approach (ICD-10-PCS; principal; 2018-11-26)
DX: I50.23 Acute on chronic systolic (congestive) heart failure (principal); J15.212 Pneumonia due to Methicillin resistant Staphylococcus aureus; N18.4 Chronic kidney disease, stage 4 (severe); A04.72 Enterocolitis due to Clostridium difficile, not specified as recurrent; E87.1 Hypo-osmolality and hyponatremia; N39.0 Urinary tract infection, site not specified; G35 Multiple sclerosis; R62.7 Adult failure to thrive; R13.12 Dysphagia, oropharyngeal phase; E83.42 Hypomagnesemia; D64.89 Other specified anemias; E87.6 Hypokalemia; I95.89 Other hypotension; F41.8 Other specified anxiety disorders; D69.6 Thrombocytopenia, unspecified; B96.1 Klebsiella pneumoniae [K. pneumoniae] as the cause of diseases classified elsewhere
CPT/HCPCS: 36415; 51702; 80048; 80053; 80202; 81000; 82550; 82553; 83605; 83630; 83735; 83880; 84443; 84484; 85007; 85027; 86850; 86900; 86901; 86922; 87015; 87040; 87045; 87070; 87077; 87086; 87088; 87185; 87186; 87205; 87324; 87449; 87899; 93005; 94760; 96374; 99284; J0132; J1335; J1650; J1940; J2405; J2920; J3370; J3475; J3480; J3490; P9016

== ENCOUNTER 2018-12-10 22:19 | Outpatient (CLI) | payer OTHER ==
[~2018-12-10 22:19] MED LIST changes: +ACETAMINOPHEN PO; +ACID REDUCER20 MG PO; +BINOSTO70 MG PO; +BIOTIN5000 MCG PO; +FLUD0.1T PO; +FURO20TA67 PO; +K-TABS10 MEQ PO; +KP FOLIC ACID1 MG PO; +LISI5TAB10 PO; +NITROFURANTOIN100 MG PO; +PROBIOTIC1 TAB PO; +VIRT PO; +VITAMIN C1000 MG PO
== END 2018-12-10 23:37 | disposition short-term general hospital (02) ==
LOC: AMB 22:19
DX: I50.23 Acute on chronic systolic (congestive) heart failure (principal); J15.212 Pneumonia due to Methicillin resistant Staphylococcus aureus; N18.4 Chronic kidney disease, stage 4 (severe); A04.72 Enterocolitis due to Clostridium difficile, not specified as recurrent; E87.1 Hypo-osmolality and hyponatremia; N39.0 Urinary tract infection, site not specified; G35 Multiple sclerosis; R62.7 Adult failure to thrive; R13.12 Dysphagia, oropharyngeal phase; E83.42 Hypomagnesemia; D64.89 Other specified anemias; E87.6 Hypokalemia; I95.89 Other hypotension; F41.8 Other specified anxiety disorders; D69.6 Thrombocytopenia, unspecified; B96.1 Klebsiella pneumoniae [K. pneumoniae] as the cause of diseases classified elsewhere
CPT/HCPCS: A0425; A0427

== ENCOUNTER 2019-01-16 17:30 | Inpatient (IN) | payer OTHER ==
[~2019-01-16] VITALS: Ht 172.7 cm; Wt 49.2 kg
[2019-01-16 19:52] LABS: PLATELET COUNT 127 K/uL (152-353)
[2019-01-16 20:05] LABS: POTASSIUM 3.8 mmol/L (3.6-5.2)
[2019-01-17 01:18] VITALS: BP 97/42; TEMP 97; Ht 172.7 cm; Wt 49.2 kg
--- NOTE | 2019-01-17 01:39 | NUR ---
01/16/2019 AT 2030 PT. C/O PRABHAKAR CATH "LEAKING" AND PAINFUL. DC'D CATHETER THAT PATIENT CAME IN WITH, URINE VERY CONCENTRATED AND MURKY LOOKING, SAMPLE SENT TO LAB FOR UA. PLACED A NEW PRABHAKAR SIZE 16 AND YELLOW CLOUDY URINE NOTED TO BAG AND NEW SAMPLE SENT TO LAB FOR UA. 01/16/[address] ESCOBAR AND GAVE HIM RESULTS FROM FIRST UA, ORDERS GIVEN TO START AN IN SITE AND GIVE HER D5NS AT 100ML/HR. WILL CONTINUE TO MONITOR.
[2019-01-17 08:00] VITALS: BP 112/62; TEMP 97
--- NOTE | 2019-01-17 11:47 | NUR ---
PATIENT DOES NOT HAVE ANY HOME MEDICATIONS WITH HER AT THIS TIME. PATIENT AND INSTRUCTED TO BRING MEDICATIONS FROM HOME. PATIENT AND VERBALIZED UNDERSTANDING.
[2019-01-17 20:28] VITALS: BP 115/46; TEMP 98.5
--- NOTE | 2019-01-18 02:00 | NUR ---
ASSUMED CARE OF PATIENT FROM ROEL LEE RN.
[2019-01-18 08:00] VITALS: BP 111/66; TEMP 99.4
[2019-01-18 20:57] VITALS: BP 94/42; TEMP 97.9
[2019-01-19 08:00] VITALS: BP 111/55; TEMP 97.9
[2019-01-19 20:37] VITALS: BP 109/63; TEMP 97.6
--- NOTE | 2019-01-19 22:18 | NUR ---
01/20/192049 PT GIVEN MEDS VIA PEG TUBE, PT FEEDING STARTED OSMILITE 1.2 100ML/HR, TOLERATED WELL, TURNED AND REPOSITIONED FOR COMFORT
--- NOTE | 2019-01-20 00:34 | NUR ---
01/20/19 0015 PT TURNED AND REPOSTIONED TO LEFT SIDE TOLERATED WELL PEG TUBE FEEDING INFUSING WITHOUT DIFFICULTY.CC
--- NOTE | 2019-01-20 05:28 | NUR ---
01/20/19 0515 PT TURNED REPOSTIONED TO LEFT SIDE TOLERATED WELL.CC
[2019-01-20 08:00] VITALS: BP 120/72; TEMP 98.3
--- NOTE | 2019-01-20 13:09 | NUR ---
01/16/19-MRS RIVERA IS A 68 YEAR OLD FEMALE ADMITTED FROM [place] FOR SWING BED HALF-WAY SERVICES. SHE IS FOUND TO HAVE SEVERE MUSCLE WEAKNESS STEMMING FROM RECENT C-DIFF. SHE WAS IN THE HOSPITAL IN [place] FOR OVER A MONTH. PT ALSO HAS MS, ITP, CHF. SHE NEEDS 24 HOUR HALF-WAY CARE AND THAT IS A PRACTICAL MATTER. SHE HAS NO ONE TO PROVIDE CARE FOR ON A DAILY 24HR BASIS. SHE NEEDS HELP WITH ALL OF HER ADL'S AND PERSONAL CARE. ROLLER PRINTER WILL CONTINUE TO OBSERVE AND ASSIST WITH ANY MEDICALLY RELATED PSYCHOSOCIAL NEEDS PRN.
[2019-01-20 20:00] VITALS: BP 119/50; TEMP 97
[2019-01-21 08:11] VITALS: BP 105/53; TEMP 98
[2019-01-21 20:00] VITALS: BP 112/56; TEMP 97
[2019-01-22 08:00] VITALS: BP 98/49; TEMP 97.9
[2019-01-22 20:35] VITALS: BP 108/47; TEMP 97.6
--- NOTE | 2019-01-22 21:00 | NUR ---
MEDS GIVEN VIA [employer]. PT DOES NOT WANT HER FEEDING STARTED AT THIS TIME, STATES THAT SHE IS FULL. TOLD HER I WOULD CHECK BACK IN AN HOUR
--- NOTE | 2019-01-22 22:20 | NUR ---
PT STILL DOES NOT WANT FEEDING STARTED AT THIS TIME. WILL CHECK AGAIN LATER. PT STATED THAT SHE HAD EATEN SOMETHING FROM [employer].
--- NOTE | 2019-01-23 03:15 | NUR ---
FEEDING INFUSING W/O DIFF
[2019-01-23 08:00] VITALS: BP 107/45; TEMP 96.9
[2019-01-23 20:14] VITALS: BP 110/47; TEMP 97.9
--- NOTE | 2019-01-23 21:00 | NUR ---
PATIENT AT THE NURSES STATION STATED " MY HAD A LOOSE BM ON THE CHAIR, I NEED HELP TO CLEAN HER UP". PATIENT'S NURSE AND DONIS RAMOS RN IN THE ROOM. TRANSFERRED PATIENT FROM CHAIR TO BEDSIDE. PATIENT CLEANED AND REPOSITIONED UP IN BED. PATIENT ALSO REQUESTED PAIN MEDICATION AND HER ATIVAN. PATIENT TOOK ATIVAN BY MOUTH AND HER NIGHT MEDS VIA PEG TUBE. PATIENT STATED SHE WAS HURTING IN HER HIPS RATED PAIN 5 ON PAIN SCALE 0-10. WILL CONTINUE TO MONITOR NEEDED.
--- NOTE | 2019-01-24 03:01 | NUR ---
PATIENT CALLED THE NURSES STATION AND REQUESTED MEDICATION FOR NAUSEA. UPON ENTERING ROOM PATIENT NOTED DRY HEAVING BUT NO VISIBLE SIGNS OF EMESIS NOTED. CURRENT FEEDINGS STOPPED AT THIS TIME. ZOFRAN 8 MG GIVEN VIA PEG TUBE AT THIS TIME. WILL REASSESS POST MEDICATION.
[2019-01-24 19:39] VITALS: BP 125/64; TEMP 97.7
[2019-01-25 08:00] VITALS: BP 99/50; TEMP 97.6
[2019-01-25 20:00] VITALS: BP 101/47; TEMP 97.3
[2019-01-26 08:00] VITALS: BP 100/44; TEMP 96.7
[2019-01-26 20:00] VITALS: BP 107/55; TEMP 97
[2019-01-27 08:00] VITALS: BP 111/59; TEMP 97.1
[2019-01-27 20:34] VITALS: BP 112/59; TEMP 97.6
--- NOTE | 2019-01-27 20:45 | NUR ---
PM MEDS GIVEN. PT REFUSED TO HAVE FEEDING STARTED AT THIS TIME. IT WAS OFFERED FOR ME TO START FEEDING AT A LATER TIME BUT PT DID NOT WANT IT STARTED.
[2019-01-28 08:00] VITALS: BP 111/64; TEMP 97
[2019-01-28 20:07] VITALS: BP 118/64; TEMP 97.5
[2019-01-29 08:00] VITALS: BP 114/60; TEMP 96.2
[2019-01-29 20:21] VITALS: BP 134/76; TEMP 98
--- NOTE | 2019-01-29 22:57 | NUR ---
PT TURNED REPOSITIONED AND RETURNED TO ASSIGNED ROOM
--- NOTE | 2019-01-30 01:31 | NUR ---
PT LYING IN BED QUIETLY WITH EYES CLOSED
--- NOTE | 2019-01-30 05:43 | NUR ---
PT TURNED AND REPOSITIONED
--- NOTE | 2019-01-30 06:24 | NUR ---
PT HAS BEEN REFUSING TUBE FEEDING FOR THE PAST THREE DAYS AND CONTINUED TO REFUSE FEEDING TODAY, PT HAS EATEN MEAL THAT BROUGHT
--- NOTE | 2019-01-30 08:17 | NUR ---
0815 ABNORMAL LABS GIVEN TO DR ESCOBAR. URINE C&S RESULTS. AWAITING FURTHER ORDERS.
[2019-01-30 11:13] LABS: POTASSIUM 4.6 mmol/L (3.6-5.2)
[2019-01-30 20:00] VITALS: BP 93/45; TEMP 96.8
[2019-01-31 08:12] VITALS: BP 104/42; TEMP 96
[2019-01-31 20:00] VITALS: BP 109/56; TEMP 96.3
--- NOTE | 2019-01-31 22:15 | NUR ---
LAB DRAW, PT TOLERATED WELL
--- NOTE | 2019-01-31 22:59 | NUR ---
PT REFUSED FEEDING VIA PEGTUBE AGAIN TONIGHT. STATES THAT SHE HAS BEEN EATING.
[2019-02-01 08:00] VITALS: BP 92/52; TEMP 98.2
--- NOTE | 2019-02-01 17:06 | NUR ---
PT OFFERED PEG TUBE FEEDING. PT REFUSED. PT STATES" IM JUST TOO FULL DIXIE BEEN EATING ALL DAY."
[2019-02-02 06:18] LABS: POTASSIUM 4.1 mmol/L (3.6-5.2)
--- NOTE | 2019-02-02 06:38 | NUR ---
PT RESTING WITH EYES CLOSED, NO S/S OF PAIN OR DISTRESS NOTED, IV LOCK INTACT, PRABHAKAR PATENT DRAINING TO BEDSIDE, PEG TUBE INTACT, RESP RATE NONLABORED, O2 AT 2LPM VIA NC, GAVE MORNING MEDICATION CRUSHED VIA PEG, FLUSHED BEFORE AND AFTER WITH 30ML WATER WITH NO PROBLEMS NOTED TO SITE, PT DID AROUSE AND DENY AND NEEDS AT THIS TIME, REMAINS ALERT AND ORIENTED, WILL MONITOR, RAILS UP, BED IN LOW POSITION, ENCOURAGED TO CALL NEEDED, CALL LIGHT IN REACH.
--- NOTE | 2019-02-02 06:50 | NUR ---
220ML TOTAL VIA PEG DURING 7PM-7AM SHIFT.
--- NOTE | 2019-02-02 17:07 | NUR ---
PT OFFERED PEG TUBE FEEDING, PT REFUSED
[2019-02-02 20:00] VITALS: BP 129/70; TEMP 96.8
--- NOTE | 2019-02-02 22:41 | NUR ---
02/02/192014 PT SITTING UP IN BED HF EATING MEAL THAT SEANОЛЬГА BROUGHT IN TOLERATED WELL PT SAID SHE EAT TO MUCH.ASSISTED TO CHANGE AND PLACE GOWN ON PATIENT AFTER EATING.CC 02/02/19 2330 PT BRIEF CAHNGED WITH SMALL SOFT STOOL NAD NOTED.CC
--- NOTE | 2019-02-03 04:04 | NUR ---
02/03/19 0200 TURNED AND REPOSTIONED TO RIGHT SIDE HEELS FLOATED,CALL LIGHT WITHIN REACH.CC 02/03/19 0345 AWAKE REQUESTED TO BE TURNED REPOSTINED TO LEFT SIDE TOLERATED WELL.HEELS FLOATED.CALL LIGHT WITHIN REACH.CC
[2019-02-03 20:35] VITALS: BP 101/47; TEMP 96.9
[2019-02-04 20:00] VITALS: BP 89/55; TEMP 96.4
[2019-02-05 08:00] VITALS: BP 102/52; TEMP 96.9
--- NOTE | 2019-02-05 20:02 | NUR ---
1900 PT GIVEN D/C INSTURCTIONS. PT AND FAMILY INSTRUCTEDT TO CALL DR. ESCOBAR IN THE MORNING FOR FURTHER INSTRUCTIONS ON WHAT MEDICATIONS TO TAKE AND REFILLS. PT AND FAMILY VOICED UNDERSTANDING.
--- NOTE | 2019-02-05 20:04 | NUR ---
[address] ESCOBAR INFORMED HIM OF PT PEAK AND TROUGH LEVELS. ORDERS REC'D TO D/C PT HOME. LEAVE SALINE LOCK IN PLACE.
== END 2019-02-05 20:10 | disposition home or self-care (01) | DRG 556 ==
LOC: MED/SURG 17:30
PROVIDERS: ADMIT Internal Medicine
DX: M62.81 Muscle weakness (generalized) (principal); N39.0 Urinary tract infection, site not specified; J90 Pleural effusion, not elsewhere classified; E46 Unspecified protein-calorie malnutrition; R62.7 Adult failure to thrive; G35 Multiple sclerosis; I50.9 Heart failure, unspecified; B96.5 Pseudomonas (aeruginosa) (mallei) (pseudomallei) as the cause of diseases classified elsewhere
CPT/HCPCS: 80048; 80053; 80200; 81000; 85027; 87077; 87086; 87088; 87186; 94640; 94664; 94760

== ENCOUNTER 2019-02-13 13:07 | Outpatient (CLI) | payer OTHER | END 2019-02-13 22:46 | disposition home or self-care (01) | LOC: LAB 13:07 | DX: N39.0 Urinary tract infection, site not specified (principal) | CPT/HCPCS: 81000 ==

== ENCOUNTER 2019-02-28 11:29 | Outpatient (CLI) | payer OTHER ==
[2019-02-28 11:47] LABS: PLATELET COUNT 62 K/uL (152-353)
[2019-02-28 12:57] LABS: POTASSIUM 3.9 mmol/L (3.6-5.2)
== END 2019-02-28 21:07 | disposition home or self-care (01) ==
LOC: LAB 11:29
PROVIDERS: Internal Medicine
DX: G35 Multiple sclerosis (principal); N35.82 Other urethral stricture, female; Z22.1 Carrier of other intestinal infectious diseases; R82.998 Other abnormal findings in urine
CPT/HCPCS: 80053; 81000; 85027; 87077; 87086; 87088; 87186

== ENCOUNTER 2019-03-15 10:49 | Outpatient (CLI) | payer OTHER ==
[2019-03-15 11:02] LABS: PLATELET COUNT 82 K/uL (152-353)
[2019-03-15 11:15] LABS: POTASSIUM 3.8 mmol/L (3.6-5.2)
== END 2019-03-15 23:45 | disposition home or self-care (01) ==
LOC: LAB 10:49
PROVIDERS: Internal Medicine
DX: G35 Multiple sclerosis (principal); N35.82 Other urethral stricture, female; Z22.1 Carrier of other intestinal infectious diseases
CPT/HCPCS: 80053; 85027

== ENCOUNTER 2019-03-22 11:07 | Outpatient (CLI) | payer OTHER | END 2019-03-22 20:12 | disposition home or self-care (01) | LOC: LAB 11:07 | DX: N39.0 Urinary tract infection, site not specified (principal) | CPT/HCPCS: 81000 ==

== ENCOUNTER 2019-03-29 11:09 | Outpatient (CLI) | payer OTHER ==
[2019-03-29 11:48] LABS: PLATELET COUNT 30 K/uL (152-353)
[2019-03-29 12:07] LABS: POTASSIUM 4.6 mmol/L (3.6-5.2)
== END 2019-03-29 23:17 | disposition home or self-care (01) ==
LOC: LAB 11:09
PROVIDERS: Internal Medicine
DX: N39.0 Urinary tract infection, site not specified (principal); G35 Multiple sclerosis; I50.89 Other heart failure
CPT/HCPCS: 80053; 81000; 85027; 87077; 87086; 87088; 87185; 87186

== ENCOUNTER 2019-04-05 17:45 | Outpatient (CLI) | payer OTHER | END 2019-04-05 22:33 | disposition home or self-care (01) | LOC: LAB 17:45 | DX: N39.0 Urinary tract infection, site not specified (principal) | CPT/HCPCS: 81000; 87077; 87086; 87088; 87186 ==

== ENCOUNTER 2019-04-12 10:53 | Outpatient (CLI) | payer OTHER ==
[2019-04-12 11:32] LABS: POTASSIUM 3.9 mmol/L (3.6-5.2)
[2019-04-12 11:35] LABS: PLATELET COUNT 55 K/uL (152-353)
== END 2019-04-12 19:12 | disposition home or self-care (01) ==
LOC: LAB 10:53
PROVIDERS: Internal Medicine
DX: G35 Multiple sclerosis (principal); N35.82 Other urethral stricture, female; Z22.1 Carrier of other intestinal infectious diseases
CPT/HCPCS: 80053; 85027

== ENCOUNTER 2019-04-20 13:55 | Outpatient (CLI) | payer OTHER | END 2019-04-20 20:48 | disposition home or self-care (01) | LOC: LAB 13:55 | DX: N39.0 Urinary tract infection, site not specified (principal); N35.82 Other urethral stricture, female; G35 Multiple sclerosis; Z22.1 Carrier of other intestinal infectious diseases | CPT/HCPCS: 81000; 87077; 87086; 87088; 87186 ==

== ENCOUNTER 2019-04-26 11:54 | Outpatient (CLI) | payer OTHER ==
[2019-04-26 12:31] LABS: PLATELET COUNT 84 K/uL (152-353)
[2019-04-26 12:42] LABS: POTASSIUM 3.8 mmol/L (3.6-5.2)
== END 2019-04-26 21:08 | disposition home or self-care (01) ==
LOC: LAB 11:54
PROVIDERS: Internal Medicine
DX: G35 Multiple sclerosis (principal); N35.82 Other urethral stricture, female; Z22.1 Carrier of other intestinal infectious diseases
CPT/HCPCS: 80053; 85027

== ENCOUNTER 2019-05-03 17:59 | Emergency (ER) | payer OTHER ==
[~2019-05-03] VITALS: Ht 172.7 cm; Wt 49.0 kg
[2019-05-03 22:32] VITALS: BP 139/82; TEMP 98.2
== END 2019-05-03 22:32 | disposition home or self-care (01) ==
LOC: ED 17:59
PROC: 0D20XUZ Change Feeding Device in Upper Intestinal Tract, External Approach (ICD-10-PCS; principal; 2019-05-03)
DX: K94.29 Other complications of gastrostomy (principal)
CPT/HCPCS: 99283

== ENCOUNTER 2019-05-05 14:24 | Emergency (ER) | payer OTHER ==
[~2019-05-05] VITALS: Ht 172.7 cm; Wt 49.0 kg
[2019-05-05 14:39] VITALS: BP 108/30; TEMP 96.8
== END 2019-05-05 16:08 | disposition home or self-care (01) ==
LOC: ED 14:24
PROC: 0D20XUZ Change Feeding Device in Upper Intestinal Tract, External Approach (ICD-10-PCS; principal; 2019-05-05)
DX: K94.29 Other complications of gastrostomy (principal)
CPT/HCPCS: 99282; J2001

== ENCOUNTER 2019-05-08 14:54 | Outpatient (CLI) | payer OTHER ==
[2019-05-08 15:22] LABS: POTASSIUM 4.3 mmol/L (3.6-5.2)
[2019-05-08 15:50] LABS: PLATELET COUNT 64 K/uL (152-353)
== END 2019-05-08 19:20 | disposition home or self-care (01) ==
LOC: LAB 14:54
PROVIDERS: Internal Medicine
DX: G35 Multiple sclerosis (principal); N35.82 Other urethral stricture, female; Z22.1 Carrier of other intestinal infectious diseases; R82.998 Other abnormal findings in urine; Z79.899 Other long term (current) drug therapy
CPT/HCPCS: 80053; 81000; 82465; 85027; 87077; 87086; 87088; 87185; 87186

== ENCOUNTER 2019-05-19 14:09 | Inpatient (IN) | payer OTHER ==
[~2019-05-19] VITALS: Ht 172.7 cm; Wt 52.8 kg
[2019-05-19 14:40] VITALS: BP 120/34; TEMP 98.5; Ht 172.7 cm; Wt 52.8 kg
[2019-05-19 15:38] VITALS: BP 120/34; TEMP 98.5
[2019-05-19 15:49] LABS: PLATELET COUNT 89 K/uL (152-353)
[2019-05-19 15:54] LABS: POTASSIUM 5.9 mmol/L (3.6-5.2)
[2019-05-19 16:00] VITALS: BP 120/34; TEMP 98.5
[2019-05-19 20:00] VITALS: BP 127/44; BP 131/81; TEMP 97.2; TEMP 98.7
[2019-05-19 23:42] VITALS: BP 198/40; TEMP 96.6
[2019-05-20 03:30] VITALS: BP 113/47; TEMP 97.6
[2019-05-20 08:00] VITALS: BP 117/65; TEMP 97.5
[2019-05-20] MEDS ORDERED: MIDODRINE5 MG PO (10:12)
[2019-05-20] MEDS ORDERED: OMEPRAZOLE DR40 MG PO (10:14)
[2019-05-20] MEDS ORDERED: LORA1TAB17 PO (10:16)
[2019-05-20] MEDS ORDERED: CARV3.12 PO (10:16)
[2019-05-20] MEDS ORDERED: FABB PO (10:19)
[2019-05-20] MEDS ORDERED: BUMETANIDE1 MG PO (10:20)
[2019-05-20] MEDS ORDERED: TURMERIC CURCUM1 CA1 PO (10:22)
[2019-05-20 12:07] VITALS: BP 116/57; TEMP 97.5
[2019-05-20 16:00] VITALS: BP 124/53; TEMP 98.4
[2019-05-20 20:28] VITALS: BP 130/80; TEMP 99.4
[2019-05-21] VITALS (7 sets, daily range): BP systolic 102–143; BP diastolic 40–78; TEMP 96.9–99.3
[2019-05-21 04:56] LABS: PLATELET COUNT 63 K/uL (152-353)
[2019-05-21 06:11] LABS: POTASSIUM 5.3 mmol/L (3.6-5.2)
[2019-05-22] VITALS (7 sets, daily range): BP systolic 113–148; BP diastolic 70–90; TEMP 97.3–99.1
[2019-05-22 05:10] LABS: PLATELET COUNT 74 K/uL (152-353)
[2019-05-22 05:54] LABS: POTASSIUM 4.9 mmol/L (3.6-5.2)
[2019-05-23 04:00] VITALS: BP 129/80; TEMP 97.4
[2019-05-23 08:00] VITALS: BP 112/64; TEMP 97.5
[2019-05-23 12:00] VITALS: BP 135/76; TEMP 97.3
[2019-05-23 16:00] VITALS: BP 140/79; TEMP 97
[2019-05-23 20:00] VITALS: BP 140/92; TEMP 98.7
[2019-05-24] VITALS: BP 108/69; TEMP 98.8
[2019-05-24 04:00] VITALS: BP 133/74; TEMP 97.7
[2019-05-24 05:45] LABS: PLATELET COUNT 132 K/uL (152-353)
[2019-05-24 06:31] LABS: POTASSIUM 4.2 mmol/L (3.6-5.2)
[2019-05-24 08:00] VITALS: BP 148/85; TEMP 98
[2019-05-24 12:00] VITALS: BP 130/80; TEMP 98.4
[2019-05-24 16:00] VITALS: BP 1334/77; TEMP 97.1
[2019-05-24 20:00] VITALS: BP 122/74; TEMP 98
[2019-05-25 00:14] VITALS: BP 97/44; TEMP 98.4
[2019-05-25 04:00] VITALS: BP 128/64; TEMP 98.1
[2019-05-25 08:00] VITALS: BP 100/49; TEMP 96.7
[2019-05-25 12:00] VITALS: BP 104/41; TEMP 97.4
[2019-05-25 16:00] VITALS: BP 118/65; TEMP 97.3
== END 2019-05-25 16:20 | disposition short-term general hospital (02) | DRG 689 ==
LOC: MED/SURG 14:09
PROVIDERS: ADMIT Family Medicine
PROC: 30233N1 Transfusion of Nonautologous Red Blood Cells into Peripheral Vein, Percutaneous Approach (ICD-10-PCS; principal; 2019-05-19)
DX: N39.0 Urinary tract infection, site not specified (principal); J18.8 Other pneumonia, unspecified organism; J81.1 Chronic pulmonary edema; R13.19 Other dysphagia; E87.5 Hyperkalemia; G35 Multiple sclerosis; D63.8 Anemia in other chronic diseases classified elsewhere; R53.1 Weakness; E86.0 Dehydration; D69.6 Thrombocytopenia, unspecified; R06.03 Acute respiratory distress; I51.7 Cardiomegaly; R74.8 Abnormal levels of other serum enzymes
CPT/HCPCS: 36415; 80053; 80170; 81000; 82550; 84484; 85014; 85018; 85027; 85379; 86850; 86900; 86901; 86922; 87070; 87088; 87205; 93005; 94760; A9576; J0456; J0696; J1580; J1650; J1940; J2405; P9016

== ENCOUNTER 2019-06-07 13:25 | Outpatient (CLI) | payer OTHER ==
[~2019-06-07 13:25] MED LIST changes: +BUMETANIDE1 MG PO; +FABB PO; +LORA1TAB17 PO; +MIDODRINE5 MG PO; +OMEPRAZOLE DR40 MG PO; +TURMERIC CURCUM1 CA1 PO
== END 2019-06-07 23:31 | disposition home or self-care (01) ==
LOC: LAB 13:25
DX: Z22.1 Carrier of other intestinal infectious diseases (principal); G35 Multiple sclerosis; N35.82 Other urethral stricture, female; R82.998 Other abnormal findings in urine
CPT/HCPCS: 81000; 87088; 87324; 87449

== ENCOUNTER 2019-06-21 10:51 | Outpatient (CLI) | payer OTHER | END 2019-06-21 23:45 | disposition home or self-care (01) | LOC: LAB 10:51 | DX: N39.0 Urinary tract infection, site not specified (principal) | CPT/HCPCS: 81000; 87077; 87086; 87088; 87186 ==

== ENCOUNTER 2019-07-18 11:28 | Outpatient (CLI) | payer OTHER ==
[2019-07-18 12:07] LABS: POTASSIUM 4.2 mmol/L (3.6-5.2)
[2019-07-18 12:12] LABS: PLATELET COUNT 99 K/uL (152-353)
== END 2019-07-18 23:59 ==
LOC: LAB 11:28
PROVIDERS: Internal Medicine
DX: N39.0 Urinary tract infection, site not specified (principal)
CPT/HCPCS: 80053; 81000; 85027; 87077; 87086; 87088; 87186

== ENCOUNTER 2019-07-20 08:17 | Day surgery (SDC) | payer OTHER | END 2019-07-20 11:30 | disposition home or self-care (01) | LOC: OR 08:17 | PROC: 0DH63UZ Insertion of Feeding Device into Stomach, Percutaneous Approach (ICD-10-PCS; principal; 2019-07-20) | DX: K94.23 Gastrostomy malfunction (principal); K44.9 Diaphragmatic hernia without obstruction or gangrene; R13.13 Dysphagia, pharyngeal phase | CPT/HCPCS: J0690; J2250; J2405; J2704 ==

== ENCOUNTER 2019-07-30 14:45 | Outpatient (CLI) | payer OTHER | END 2019-07-30 23:59 | disposition home or self-care (01) | LOC: RAD 14:45 | DX: R05 Cough (principal) ==

== ENCOUNTER 2019-08-01 10:40 | Inpatient (IN) | payer OTHER ==
[~2019-08-01] VITALS: Ht 172.7 cm; Wt 54.1 kg
[2019-08-01 12:00] VITALS: BP 100/31; TEMP 98.3
[2019-08-01 13:45] VITALS: BP 100/31; TEMP 98.3; Ht 172.7 cm; Wt 54.1 kg
[2019-08-01 16:00] VITALS: BP 129/36; TEMP 98.1
[2019-08-01 20:00] VITALS: BP 122/45; TEMP 96.5
[2019-08-02] VITALS (25 sets, daily range): BP systolic 89–141; BP diastolic 33–72; TEMP 96.4–97.9
[2019-08-02 08:27] LABS: PLATELET COUNT 109 K/uL (152-353)
[2019-08-02 08:57] LABS: POTASSIUM 4.1 mmol/L (3.6-5.2); SODIUM 143 mmol/L (136-145)
[2019-08-03] VITALS (14 sets, daily range): BP systolic 85–128; BP diastolic 31–64; TEMP 96.5–97.5
[2019-08-03 10:52] LABS: PLATELET COUNT 120 K/uL (152-353)
[2019-08-03 11:25] LABS: POTASSIUM 3.6 mmol/L (3.6-5.2)
[2019-08-04] VITALS: BP 134/50; TEMP 97.4
[2019-08-04 04:00] VITALS: BP 123/44; TEMP 97.6
[2019-08-04 08:55] LABS: PLATELET COUNT 134 K/uL (152-353)
[2019-08-04 20:00] VITALS: BP 111/86; TEMP 98.8
[2019-08-04 23:54] VITALS: BP 103/41; TEMP 98.4
[2019-08-05 04:00] VITALS: BP 126/59; TEMP 98.5
[2019-08-05 08:00] VITALS: BP 127/64; TEMP 97.4
== END 2019-08-05 14:00 | disposition home health service (06) | DRG 682 ==
LOC: MED/SURG 10:40 → ICU 08-02 00:55 → MED/SURG 08-03 09:45
PROVIDERS: ADMIT Internal Medicine
PROC: 30233N1 Transfusion of Nonautologous Red Blood Cells into Peripheral Vein, Percutaneous Approach (ICD-10-PCS; principal; 2019-08-02)
PROC: 5A1935Z Respiratory Ventilation, Less than 24 Consecutive Hours (ICD-10-PCS; 2019-08-02)
PROC: 0BH17EZ Insertion of Endotracheal Airway into Trachea, Via Natural or Artificial Opening (ICD-10-PCS; 2019-08-02)
PROC: 5A12012 Performance of Cardiac Output, Single, Manual (ICD-10-PCS; 2019-08-02)
PROC: 30233N1 Transfusion of Nonautologous Red Blood Cells into Peripheral Vein, Percutaneous Approach (ICD-10-PCS; 2019-08-03)
DX: N17.8 Other acute kidney failure (principal); I46.9 Cardiac arrest, cause unspecified; D69.3 Immune thrombocytopenic purpura; N39.0 Urinary tract infection, site not specified; I42.8 Other cardiomyopathies; G35 Multiple sclerosis; R53.1 Weakness; D63.8 Anemia in other chronic diseases classified elsewhere; D72.828 Other elevated white blood cell count; E87.6 Hypokalemia; R94.5 Abnormal results of liver function studies
CPT/HCPCS: 80048; 80053; 82550; 82553; 83735; 84484; 85027; 86850; 86900; 86901; 86922; 87040; 87077; 87185; 87186; 87205; 93005; 94760; J0696; J1265; J1940; J3490; P9016

== ENCOUNTER 2019-08-01 11:22 | Outpatient (CLI) | payer OTHER ==
[2019-08-01 11:49] LABS: POTASSIUM 3.2 mmol/L (3.6-5.2)
[2019-08-01 12:02] LABS: PLATELET COUNT 94 K/uL (152-353)
== END 2019-08-01 22:55 | disposition home or self-care (01) ==
LOC: LAB 11:22
PROVIDERS: Internal Medicine
DX: N39.0 Urinary tract infection, site not specified (principal); I50.9 Heart failure, unspecified; G35 Multiple sclerosis; N35.82 Other urethral stricture, female; Z22.1 Carrier of other intestinal infectious diseases
CPT/HCPCS: 80053; 81000; 85027; 87088

== ENCOUNTER 2019-08-29 10:48 | Outpatient (CLI) | payer OTHER ==
[2019-08-29 12:31] LABS: PLATELET COUNT 97 K/uL (152-353)
[2019-08-29 14:15] LABS: POTASSIUM 4.7 mmol/L (3.6-5.2)
== END 2019-08-29 23:45 | disposition home or self-care (01) ==
LOC: LAB 10:48
PROVIDERS: Internal Medicine
DX: I50.9 Heart failure, unspecified (principal); G35 Multiple sclerosis; N35.82 Other urethral stricture, female; Z22.1 Carrier of other intestinal infectious diseases; R82.998 Other abnormal findings in urine
CPT/HCPCS: 80053; 81000; 85027; 87077; 87086; 87088; 87186

== ENCOUNTER 2019-11-16 15:00 | Inpatient (IN) | payer OTHER ==
[~2019-11-16] VITALS: Ht 172.7 cm; Wt 55.9 kg
[2019-11-16 17:48] LABS: PLATELET COUNT 327 K/uL (152-353)
[2019-11-16 18:01] LABS: POTASSIUM 4.9 mmol/L (3.6-5.2)
[2019-11-16 19:18] VITALS: BP 103/46; TEMP 97.5; Ht 172.7 cm; Wt 55.9 kg
[2019-11-16] MEDS ORDERED: FLUD0.1T PO (19:39)
[2019-11-16] MEDS ORDERED: LACTOBACILLU PO (19:44)
[2019-11-16] MEDS ORDERED: LISI5TAB10 PO (19:46)
[2019-11-16] MEDS ORDERED: CLARITIN10 MG PO (19:46)
[2019-11-16] MEDS ORDERED: MELATONIN5 MG PO (19:47)
[2019-11-16] MEDS ORDERED: PREDNISONE10 M1 PO (19:48)
[2019-11-16] MEDS ORDERED: MILLIPRED DP5 M1 PO (19:49)
[2019-11-16 20:00] VITALS: BP 115/39; TEMP 97.6
[2019-11-17] MEDS ORDERED: FABB PO ×2 (14:43→15:11)
[2019-11-17] MEDS ORDERED: MYRBETRIQ50 MG PO ×2 (14:45→16:22)
[2019-11-17] MEDS ORDERED: CARV3.12 PO (14:47)
[2019-11-17] MEDS ORDERED: MIDODRINE2.5 MG PO (14:51)
[2019-11-17] MEDS ORDERED: MUPI2OIN2 TOP (15:02)
[2019-11-17] MEDS ORDERED: FLORASTOR250 MG PO (15:19)
[2019-11-17] MEDS ORDERED: SV MELATONIN5 MG PO (15:27)
[2019-11-17 20:00] VITALS: BP 115/63; TEMP 98.3
[2019-11-18 19:48] VITALS: BP 136/73; TEMP 98.3
[2019-11-19 08:00] VITALS: BP 115/46; TEMP 97.5
[2019-11-19 20:25] VITALS: BP 108/50; TEMP 97.5
[2019-11-20 08:00] VITALS: BP 110/45; TEMP 97.7
[2019-11-20 20:00] VITALS: BP 107/49; TEMP 97.3
[2019-11-21 08:00] VITALS: BP 102/38; TEMP 98.9
[2019-11-21 20:00] VITALS: BP 126/48; TEMP 98.5
[2019-11-22 08:07] VITALS: BP 98/47; TEMP 100.6
[2019-11-22 13:30] VITALS: TEMP 100.6
[2019-11-22 18:15] VITALS: BP 76/39; TEMP 101.8
[2019-11-22 19:03] LABS: PLATELET COUNT 177 K/uL (152-353)
[2019-11-22 19:13] LABS: POTASSIUM 4.8 mmol/L (3.6-5.2)
[2019-11-22 20:00] VITALS: BP 83/40; TEMP 100
[2019-11-23 01:30] VITALS: BP 62/29; TEMP 100.7
[2019-11-23 06:10] LABS: PLATELET COUNT 144 K/uL (152-353)
[2019-11-23 06:23] LABS: POTASSIUM 4.9 mmol/L (3.6-5.2)
[2019-11-23 08:00] VITALS: BP 75/50; TEMP 98.2
[2019-11-23 20:05] VITALS: BP 97/53; TEMP 98.6
== END 2019-11-23 20:35 | disposition short-term general hospital (02) | DRG 640 ==
LOC: MED/SURG 15:00
PROVIDERS: Internal Medicine; ADMIT Internal Medicine
PROC: 30233N1 Transfusion of Nonautologous Red Blood Cells into Peripheral Vein, Percutaneous Approach (ICD-10-PCS; principal; 2019-11-18)
DX: R62.7 Adult failure to thrive (principal); J18.8 Other pneumonia, unspecified organism; A41.52 Sepsis due to Pseudomonas; G35 Multiple sclerosis; R19.7 Diarrhea, unspecified; D64.89 Other specified anemias; M79.672 Pain in left foot; B96.89 Other specified bacterial agents as the cause of diseases classified elsewhere; L89.152 Pressure ulcer of sacral region, stage 2
CPT/HCPCS: 80053; 80200; 81000; 82533; 83605; 83735; 85014; 85018; 85027; 86850; 86900; 86901; 86922; 87040; 87077; 87081; 87186; 87324; 87449; J1720; J2405; J3260; P9016

== ENCOUNTER 2019-12-05 20:37 | Inpatient (IN) | payer OTHER ==
[~2019-12-05] VITALS: Ht 172.7 cm; Wt 51.5 kg
[~2019-12-05 20:37] MED LIST changes: +CLARITIN10 MG PO; +FLORASTOR250 MG PO; +LACTOBACILLU PO; +MELATONIN5 MG PO; +MIDODRINE2.5 MG PO; +MILLIPRED DP5 M1 PO; +MUPI2OIN2 TOP; +MYRBETRIQ50 MG PO; +PREDNISONE10 M1 PO; +SV MELATONIN5 MG PO
[2019-12-05 22:46] LABS: PLATELET COUNT 376 K/uL (152-353)
[2019-12-05 23:00] LABS: POTASSIUM 4.3 mmol/L (3.6-5.2)
[2019-12-05 23:58] VITALS: BP 98/39; TEMP 97.8
[2019-12-06 05:22] VITALS: BP 98/39; TEMP 97.8; Ht 172.7 cm; Wt 51.5 kg
[2019-12-06 08:00] VITALS: BP 101/43; TEMP 97.1
[2019-12-06 20:00] VITALS: BP 104/26; BP 116/34; TEMP 98.3
[2019-12-07 08:00] VITALS: BP 109/50; TEMP 100; TEMP 99
[2019-12-07 11:15] LABS: PLATELET COUNT 387 K/uL (152-353)
[2019-12-07 12:00] VITALS: TEMP 99
[2019-12-07 12:30] VITALS: BP 100/60; TEMP 99
[2019-12-07 19:58] VITALS: BP 90/40; TEMP 101.5
[2019-12-08 08:00] VITALS: BP 95/50; TEMP 100.4
[2019-12-08 16:00] VITALS: BP 87/53; TEMP 99.6
[2019-12-08 20:00] VITALS: BP 92/47; TEMP 103.6
[2019-12-09 07:54] VITALS: BP 71/43; TEMP 98.7
[2019-12-09 10:53] LABS: PLATELET COUNT 447 K/uL (152-353)
[2019-12-09 11:04] LABS: POTASSIUM 4.8 mmol/L (3.6-5.2)
[2019-12-09 20:00] VITALS: BP 89/44; TEMP 99.3
[2019-12-10 08:05] VITALS: BP 88/62; TEMP 102.9
[2019-12-10 12:03] VITALS: TEMP 102.2
[2019-12-10 12:51] VITALS: BP 138/102; TEMP 102.9
== END 2019-12-10 15:15 | disposition short-term general hospital (02) | DRG 556 ==
LOC: MED/SURG 20:37
PROVIDERS: ADMIT Internal Medicine
DX: M62.81 Muscle weakness (generalized) (principal); B37.41 Candidal cystitis and urethritis; A04.72 Enterocolitis due to Clostridium difficile, not specified as recurrent; R62.7 Adult failure to thrive; G35 Multiple sclerosis; M25.511 Pain in right shoulder; I95.89 Other hypotension
CPT/HCPCS: 36415; 80053; 81000; 85007; 85027; 87015; 87040; 87045; 87077; 87081; 87088; 87186; 87324; 87328; 87329; 87449; 87899; 94760; J1335

== ENCOUNTER 2019-12-10 15:18 | Outpatient (CLI) | payer OTHER | END 2019-12-10 16:23 | disposition short-term general hospital (02) | LOC: AMB 15:18 | DX: A41.9 Sepsis, unspecified organism (principal); M62.81 Muscle weakness (generalized); M25.511 Pain in right shoulder; G35 Multiple sclerosis | CPT/HCPCS: A0425; A0427 ==

== ENCOUNTER 2020-01-19 11:02 | Outpatient (CLI) | payer OTHER | END 2020-01-19 11:28 | disposition short-term general hospital (02) | LOC: AMB 11:02 | DX: R07.89 Other chest pain (principal); R00.8 Other abnormalities of heart beat; R00.0 Tachycardia, unspecified | CPT/HCPCS: A0425; A0427 ==

== ENCOUNTER 2020-02-15 10:36 | Inpatient (IN) | payer OTHER ==
[~2020-02-15] VITALS: Ht 172.7 cm; Wt 53.1 kg
[2020-02-15 10:50] VITALS: BP 112/45; TEMP 97.9
[2020-02-15 11:15] LABS: PLATELET COUNT 161 K/uL (152-353)
[2020-02-15 11:25] LABS: POTASSIUM 4.3 mmol/L (3.6-5.2); SODIUM 139 mmol/L (136-145)
[2020-02-15 13:58] VITALS: BP 100/47; TEMP 98.5; Ht 172.7 cm; Wt 53.1 kg
[2020-02-15 16:00] VITALS: BP 98/42; TEMP 100.2
[2020-02-15] MEDS ORDERED: ONDA4TAB3 PO (18:20)
[2020-02-15] MEDS ORDERED: FLORASTOR PEG (18:25)
[2020-02-15] MEDS ORDERED: CETI10TA PO (18:36)
[2020-02-15] MEDS ORDERED: VITAMIN C1000 MG PEG (18:37)
[2020-02-15 19:57] VITALS: BP 99/50; TEMP 100.7
[2020-02-15 23:59] VITALS: BP 80/49; TEMP 99.2
[2020-02-16 03:53] VITALS: BP 91/48; TEMP 101
[2020-02-16 05:11] LABS: PLATELET COUNT 123 K/uL (152-353)
[2020-02-16 05:13] LABS: POTASSIUM 4.4 mmol/L (3.6-5.2)
[2020-02-16 08:00] VITALS: BP 91/45; TEMP 99.6
[2020-02-16 12:00] VITALS: BP 160/87; TEMP 98.7
[2020-02-16 16:00] VITALS: BP 81/49; TEMP 98.6
[2020-02-16 20:00] VITALS: BP 110/30; TEMP 100
[2020-02-17] VITALS: BP 92/30; TEMP 100.5
[2020-02-17 04:00] VITALS: BP 93/53; TEMP 99.3
[2020-02-17 08:06] VITALS: BP 109/55; TEMP 99.9
[2020-02-17 12:06] VITALS: BP 107/50; TEMP 100
[2020-02-17 16:09] VITALS: BP 108/37; TEMP 99.4
[2020-02-17 20:00] VITALS: BP 120/45; TEMP 99.7
[2020-02-18] VITALS: BP 100/49; TEMP 98.9
[2020-02-18 04:00] VITALS: BP 98/53; TEMP 98.2
[2020-02-18 08:04] VITALS: BP 100/52; TEMP 98
[2020-02-18 12:36] VITALS: BP 100/47; TEMP 97.6
[2020-02-18 16:24] VITALS: BP 103/58; TEMP 97.5
[2020-02-18 20:00] VITALS: BP 115/44; TEMP 98.7
[2020-02-19] VITALS: BP 104/55; TEMP 98.5
[2020-02-19 04:00] VITALS: BP 103/53; TEMP 97.8
[2020-02-19 05:31] LABS: PLATELET COUNT 178 K/uL (152-353)
[2020-02-19 05:45] LABS: POTASSIUM 3.8 mmol/L (3.6-5.2)
[2020-02-19 08:00] VITALS: BP 118/59; TEMP 98.2
== END 2020-02-19 13:20 | disposition home or self-care (01) | DRG 291 ==
LOC: ED 10:36 → MED/SURG 11:55
PROVIDERS: Internal Medicine; ADMIT Emergency Medicine
DX: I13.0 Hypertensive heart and chronic kidney disease with heart failure and stage 1 through stage 4 chronic kidney disease, or unspecified chronic kidney disease (principal); J18.8 Other pneumonia, unspecified organism; I50.20 Unspecified systolic (congestive) heart failure; N18.4 Chronic kidney disease, stage 4 (severe); D69.3 Immune thrombocytopenic purpura; N39.0 Urinary tract infection, site not specified; I43 Cardiomyopathy in diseases classified elsewhere; R53.1 Weakness; G35 Multiple sclerosis; I25.10 Atherosclerotic heart disease of native coronary artery without angina pectoris; R13.19 Other dysphagia; D64.89 Other specified anemias
CPT/HCPCS: 36415; 80048; 80053; 81000; 82550; 83605; 83690; 83735; 83880; 84484; 85027; 87040; 87088; 93005; 94640; 94664; 94760; 96360; 96361; 96365; 99284; J1885; J1940; J1956; J3370; J7120

== ENCOUNTER 2020-03-07 11:19 | Outpatient (CLI) | payer OTHER ==
[~2020-03-07 11:19] MED LIST changes: +CETI10TA PO; +FLORASTOR PEG; +ONDA4TAB3 PO; +VITAMIN C1000 MG PEG
== END 2020-03-07 21:58 | disposition home or self-care (01) ==
LOC: LAB 11:19
DX: N39.0 Urinary tract infection, site not specified (principal)
CPT/HCPCS: 81000; 87077; 87086; 87088; 87186

== ENCOUNTER 2020-03-21 10:57 | Outpatient (CLI) | payer OTHER | END 2020-03-21 22:36 | disposition home or self-care (01) | LOC: LAB 10:57 → INF 10:57 → LAB 22:36 | DX: R30.0 Dysuria (principal); N39.0 Urinary tract infection, site not specified | CPT/HCPCS: 81000; 87077; 87086; 87088; 87186; 87324; 87449 ==

== ENCOUNTER 2020-09-05 10:03 | Outpatient (CLI) | payer OTHER ==
[2020-09-05 10:26] LABS: PLATELET COUNT 156 K/uL (152-353)
[2020-09-05 10:33] LABS: POTASSIUM 4.2 mmol/L (3.6-5.2)
== END 2020-09-05 19:29 | disposition home or self-care (01) ==
LOC: LAB 10:03
PROVIDERS: Internal Medicine
DX: E53.8 Deficiency of other specified B group vitamins (principal); G35 Multiple sclerosis; I42.0 Dilated cardiomyopathy
CPT/HCPCS: 80053; 82607; 85027

== ENCOUNTER 2020-09-17 10:57 | Outpatient (CLI) | payer OTHER | END 2020-09-17 22:32 | disposition home or self-care (01) | LOC: LAB 10:57 | DX: R30.0 Dysuria (principal) | CPT/HCPCS: 81000; 87077; 87086; 87088; 87186 ==

== ENCOUNTER 2020-10-10 13:00 | Outpatient (CLI) | payer OTHER | END 2020-10-10 21:04 | disposition home or self-care (01) | LOC: LAB 13:00 | PROVIDERS: ATTEND Internal Medicine | DX: N39.0 Urinary tract infection, site not specified (principal) | CPT/HCPCS: 80170 ==

== ENCOUNTER 2020-10-11 11:49 | Outpatient (CLI) | payer OTHER | END 2020-10-11 22:22 | disposition home or self-care (01) | LOC: LAB 11:49 | PROVIDERS: ATTEND Internal Medicine | DX: N39.0 Urinary tract infection, site not specified (principal) | CPT/HCPCS: 80170 ==

== ENCOUNTER 2020-10-12 10:03 | Outpatient (CLI) | payer OTHER | END 2020-10-12 22:24 | disposition home or self-care (01) | LOC: LAB 10:03 | PROVIDERS: ATTEND Internal Medicine | DX: N39.0 Urinary tract infection, site not specified (principal) | CPT/HCPCS: 80170 ==

== ENCOUNTER 2020-10-13 10:21 | Outpatient (CLI) | payer OTHER | END 2020-10-13 20:34 | disposition home or self-care (01) | LOC: LAB 10:21 | PROVIDERS: ATTEND Internal Medicine | DX: N39.0 Urinary tract infection, site not specified (principal) | CPT/HCPCS: 80170 ==

== ENCOUNTER 2020-10-14 10:56 | Outpatient (CLI) | payer OTHER | END 2020-10-14 23:16 | disposition home or self-care (01) | LOC: LAB 10:56 | PROVIDERS: ATTEND Internal Medicine | DX: N39.0 Urinary tract infection, site not specified (principal) | CPT/HCPCS: 80170 ==

== ENCOUNTER 2020-10-15 11:25 | Outpatient (CLI) | payer OTHER | END 2020-10-15 22:38 | disposition home or self-care (01) | LOC: LAB 11:25 | PROVIDERS: ATTEND Internal Medicine | DX: N39.0 Urinary tract infection, site not specified (principal) | CPT/HCPCS: 80170 ==

== ENCOUNTER 2020-10-16 10:29 | Outpatient (CLI) | payer OTHER | END 2020-10-16 20:43 | disposition home or self-care (01) | LOC: LAB 10:29 | PROVIDERS: ATTEND Internal Medicine | DX: N39.0 Urinary tract infection, site not specified (principal) | CPT/HCPCS: 80170 ==

== ENCOUNTER 2020-10-17 11:37 | Outpatient (CLI) | payer OTHER | END 2020-10-17 19:06 | disposition home or self-care (01) | LOC: LAB 11:37 | PROVIDERS: ATTEND Internal Medicine | DX: N39.0 Urinary tract infection, site not specified (principal) | CPT/HCPCS: 81000; 87077; 87086; 87088; 87186 ==

== ENCOUNTER 2020-10-30 12:03 | Outpatient (CLI) | payer OTHER ==
[2020-10-30 12:17] LABS: POTASSIUM 4.8 mmol/L (3.6-5.2)
== END 2020-10-30 19:59 | disposition home or self-care (01) ==
LOC: LAB 12:03
PROVIDERS: ATTEND Internal Medicine
DX: E87.0 Hyperosmolality and hypernatremia (principal)
CPT/HCPCS: 80048

== ENCOUNTER 2020-11-07 10:04 | Outpatient (CLI) | payer OTHER ==
[2020-11-07 10:51] LABS: POTASSIUM 4.7 mmol/L (3.6-5.2)
== END 2020-11-07 20:10 | disposition home or self-care (01) ==
LOC: LAB 10:04
PROVIDERS: ATTEND Internal Medicine
DX: N18.4 Chronic kidney disease, stage 4 (severe) (principal); D63.1 Anemia in chronic kidney disease; E87.0 Hyperosmolality and hypernatremia
CPT/HCPCS: 80048; 85014; 85018

== ENCOUNTER 2020-12-18 17:20 | Outpatient (CLI) | payer OTHER | END 2020-12-18 23:59 | disposition home or self-care (01) | LOC: LAB 17:20 | PROVIDERS: ATTEND Internal Medicine | DX: J18.9 Pneumonia, unspecified organism (principal); L89.302 Pressure ulcer of unspecified buttock, stage 2 | CPT/HCPCS: 80200 ==

== ENCOUNTER 2020-12-19 15:34 | Outpatient (CLI) | payer OTHER | END 2020-12-19 20:50 | disposition home or self-care (01) | LOC: LAB 15:34 | PROVIDERS: ATTEND Internal Medicine | DX: Z79.899 Other long term (current) drug therapy (principal) | CPT/HCPCS: 80200 ==

== ENCOUNTER 2020-12-20 14:59 | Outpatient (CLI) | payer OTHER | END 2020-12-20 20:00 | disposition home or self-care (01) | LOC: LAB 14:59 | PROVIDERS: ATTEND Internal Medicine | DX: N39.0 Urinary tract infection, site not specified (principal) | CPT/HCPCS: 80200 ==

== ENCOUNTER 2020-12-21 14:21 | Outpatient (CLI) | payer OTHER | END 2020-12-21 19:10 | disposition home or self-care (01) | LOC: LAB 14:21 | PROVIDERS: ATTEND Internal Medicine | DX: N39.0 Urinary tract infection, site not specified (principal) | CPT/HCPCS: 80200 ==

== ENCOUNTER 2020-12-22 16:02 | Outpatient (CLI) | payer OTHER | END 2020-12-22 19:27 | disposition home or self-care (01) | LOC: LAB 16:02 | PROVIDERS: ATTEND Internal Medicine | DX: N39.0 Urinary tract infection, site not specified (principal) | CPT/HCPCS: 80200 ==

== ENCOUNTER 2020-12-23 18:24 | Outpatient (CLI) | payer OTHER | END 2020-12-23 20:58 | disposition home or self-care (01) | LOC: LAB 18:24 | PROVIDERS: ATTEND Internal Medicine | DX: N39.0 Urinary tract infection, site not specified (principal) | CPT/HCPCS: 80200 ==

== ENCOUNTER 2020-12-24 18:41 | Outpatient (CLI) | payer OTHER ==
[2020-12-24 21:31] LABS: PLATELET COUNT 163 K/uL (152-353)
[2020-12-24 21:41] LABS: POTASSIUM 3.3 mmol/L (3.6-5.2)
== END 2020-12-24 21:39 | disposition home or self-care (01) ==
LOC: LAB 18:41
PROVIDERS: ATTEND Internal Medicine
DX: N39.0 Urinary tract infection, site not specified (principal)
CPT/HCPCS: 80048; 80200; 85027

== ENCOUNTER 2021-01-15 12:28 | Outpatient (CLI) | payer OTHER | END 2021-01-15 21:59 | disposition home or self-care (01) | LOC: LAB 12:28 | PROVIDERS: ATTEND Internal Medicine | DX: N39.0 Urinary tract infection, site not specified (principal) | CPT/HCPCS: 81000; 87077; 87086; 87088; 87186 ==